=== PATIENT | male | born 1960 | race Caucasian/White ===

== ENCOUNTER 2022-04-16 19:50 | Inpatient (IN) | payer SELFPAY ==
[2022-04-16] MEDS ORDERED: DEXAMETHASONE 10 MG/ML VIAL IVP STA (20:14)
[2022-04-16] MEDS ORDERED: IPRATROPIUM/ALBUTEROL 3 ML NEB INH STA ×2 (20:14→20:30)
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
[2022-04-16 20:25] LABS: BASOPHILS % (AUTO) 0.3 %; EOSINOPHILS # (AUTO) 0.2 10^3/uL (0.0-0.7); EOSINOPHILS % (AUTO) 1.7 %; HGB - HEMOGLOBIN 16.8 g/dL (14.0-18.0); LYMPHOCYTES # (AUTO) 2.3 10^3/uL (1.5-3.5); LYMPHOCYTES % (AUTO) 21.2 %; MEAN CORPUSCULAR HEMOGLOBIN 26.5 pg (27.0-31.0); MEAN CORPUSCULAR HGB CONC 29.5 g/dL (32.0-36.0); MEAN PLATELET VOLUME 9.2 fL (7.4-11.4); MONOCYTES # (AUTO) 0.8 10^3/uL (0.0-1.0); MONOCYTES % (AUTO) 7.3 %; NEUTROPHILS # (AUTO) 7.6 10^3/uL (1.5-6.6); NEUTROPHILS % (AUTO) 69.2 %; PLT - PLATELET COUNT 333 10^3/uL (130-450); RED BLOOD COUNT 6.33 10^6/uL (4.70-6.10)
[2022-04-16 20:36] LABS: ALBUMIN/GLOBULIN RATIO 1.2 (1.0-2.2); BILIRUBIN,TOTAL 0.6 mg/dL (0.2-1.0); CREATININE 1.1 mg/dL (0.6-1.2); POTASSIUM 4.4 mmol/L (3.5-5.0); TOTAL PROTEIN 7.4 g/dL (6.7-8.2)
[2022-04-16] MEDS ORDERED: ALBUTEROL NEB 2.5 MG/3 ML INH ONE (21:02)
[2022-04-16] MEDS ORDERED: ALBUTEROL NEB 2.5 MG/3 ML INH STA (21:09)
[2022-04-16] MEDS ORDERED: AZITHROMYCIN INJ 500 MG in SODIUM CHLORIDE 0.9% 250 ML IV STA (21:21)
[2022-04-16] MEDS ORDERED: cefTRIAXone 1 GM in SODIUM CHLORIDE 0.9% MINIBAG 100 ML IV STA (21:21)
[2022-04-16] MEDS ORDERED: cefTRIAXone 1 GM VIAL ONE (21:28)
[2022-04-16 21:36] LABS: CORONAVIRUS 229E-RESP PCR NOT DETECTED
[2022-04-16 21:37] LABS: B. PARAPERTUSSIS- RESP PCR PAN NOT DETECTED; B. PERTUSSIS- RESP PCR PANEL NOT DETECTED; C. PNEUMONIAE- RESP PCR PANEL NOT DETECTED; CORONAVIRUS HKU1-RESP PCR NOT DETECTED; CORONAVIRUS NL63-RESP PCR NOT DETECTED; CORONAVIRUS OC43-RESP PCR NOT DETECTED; HUMAN METAPNEUMOVIRUS NOT DETECTED; INFLUENZA A- RESP PCR PANEL NOT DETECTED; INFLUENZA B - RESP PCR PANEL NOT DETECTED; M. PNEUMONIAE- RESP PCR PANEL NOT DETECTED; PARAINFLUENZA VIRUS 1 NOT DETECTED; PARAINFLUENZA VIRUS 2 NOT DETECTED; PARAINFLUENZA VIRUS 3 NOT DETECTED; PARAINFLUENZA VIRUS 4 NOT DETECTED; RHINOVIRUS/ENTEROVIRUS NOT DETECTED; RSV- RESP PCR PANEL NOT DETECTED; SARS-CoV-2 -RESP PCR PANEL NOT DETECTED
--- NOTE | 2022-04-16 21:38 | XRAY Report ---
PROCEDURE: Chest 1 View X-Ray INDICATIONS: dyspnea TECHNIQUE: One view of the chest was acquired. COMPARISON: None. FINDINGS: Surgical changes and devices: None. Lungs and pleura: No pleural effusions or pneumothorax. There is pulmonary edema. Mediastinum: Mediastinal contours appear normal. Heart size is normal. Bones and chest wall: No suspicious bony lesions. Overlying soft tissues appear unremarkable. IMPRESSION: 1. Pulmonary edema which may be due to cardiogenic or noncardiogenic etiologies. Reviewed by: Bubba Herron MD on 04/16/2022 9:37 PM PST Approved by: Bubba Herron MD on 04/16/2022 9:37 PM PST Station ID: [id number]
[2022-04-17] MEDS ORDERED: ALBUTEROL NEB 2.5 MG/3 ML INH STA (00:48)
[2022-04-17 02:52] LABS: VBG BASE EXCESS 2.4 mmol/L (-2 - +2); VBG HCO3 32.9 mmol/L (23-28); VBG OXYGEN SATURATION 96.5 % (60-80); VBG PCO2 75.8 mmHg (41-51); VBG PH 7.255 (7.31-7.41); VBG PO2 91.3 mmHg (25-47); VBG TOTAL CO2 35.2 mmol/L (24-29)
[2022-04-17] MEDS ORDERED: IPRATROPIUM/ALBUTEROL 3 ML NEB INH STA (11:42)
[2022-04-17 11:59] LABS: ABG BASE EXCESS 5.9 mmol/L (-2.0-3.0); ABG OXYGEN SATURATION 96 % (94-98); ABG PH 7.21 (7.35-7.45); ABG PO2 84 mmHg (80-100); ALLEN TEST POSITIVE
[2022-04-17 12:01] LABS: ABG PCO2 101 mmHg (34-45); ABG TCO2 42.1 MMOL/L (21.0-29.0)
[2022-04-17] MEDS ORDERED: NITROGLYCERIN SL 0.4 MG TABLET SL STA (13:30)
[2022-04-17] MEDS ORDERED: LOSARTAN 50 MG TABLET PO STA (13:31)
[2022-04-17] MEDS ORDERED: ACETAMINOPHEN 325 MG TABLET PO PRN (13:40)
[2022-04-17] MEDS ORDERED: ONDANSETRON 4 MG/2 ML VIAL IVP PRN (13:40)
[2022-04-17] MEDS ORDERED: IPRATROPIUM/ALBUTEROL 3 ML NEB INH PRN (13:46)
--- NOTE | 2022-04-17 14:09 | HISTORY & PHYSICAL EXAMINATION ---
Chief Complaint - Chief Complaint Chief Complaint: SOB History of Present Illness - Admitted From Admitted From:: ED - History Obtained From History obtained from: ED provider - History of Present Illness HPI Comment/Other: This is a 61-year-old white male with history of COPD diagnosed a year ago. He has had worsening shortness of breath over the last 6 months he states and has been ordered steroids and inhalers by his PCP in [place]. Otherwise, he takes no daily prescription medications. Patient presented to the ED yesterday with complaints of shortness of breath. His ABG showed that he had respiratory acidosis (ABG pH 7.3, pCO2 75). His other evaluation showed that he had elevated BNP of 400, chest x-ray showing pulmonary edema versus bilateral infiltrates. He tested Covid (-). He was put on supplemental oxygen, got treatment with iv Decadron, Duo nebs and Atrovent nebs and was started on Zithromax and Ceftriaxone. There were no hospital beds for admission. He stayed overnight in the ED. Today a new ABG was done that shows even worsening pH of 7.2 and worsening pCO2 retention, going from 75 up to 100. BiPAP has been started today. Patient is being admitted to the ICU on the Hospitalist service today. We discussed his CODE BLUE wishes and he wants to be a Full Code. History - Past Medical History Cardiovascular: reports: None Respiratory: reports: COPD Endocrine/Autoimmune: reports: None GI: reports: None : reports: None HEENT: reports: None Psych: reports: None Musculoskeletal: reports: None Derm: reports: None - Family & Social History Family History: Mother: (Both of old age(in their mid 90's)), Father: Family History Comment/Other: He has 1 brother who is healthy. No diseases run in the family. He has no natural children. Living arrangement: At home Living Situation: With spouse/s.o. 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 He quit smoking 8 years ago. He drinks rare alcohol. He denies any illicit drug use. Meds/Allgy - Home Medications Home Medications: Ambulatory Orders Medication Instructions Recorded Confirmed Ibuprofen 800 mg PO PRN PRN 04/17/22 04/17/22 - Allergies Allergies/Adverse Reactions: Allergies Allergy/AdvReac Type Severity Reaction Status Date / Time codeine Allergy Unknown Verified 04/16/22 19:58 Review of Systems - Respiratory Respiratory: reports: Cough, Sputum production, Wheezing, Snoring, Other (His respiratory symptoms definitely got worse when there was smoke in the air about a month ago, and never got better.) - All Other Systems All Other Systems: reports: Reviewed and negative Exam - Vital Signs Vital Signs: Vital Signs x48h Temp Pulse Resp BP Pulse Ox O2 Flow Rate 04/17/22 14:02 81 04/17/22 13:00 81 18 214/110 H 92 04/17/22 12:35 78 24 04/17/22 12:30 78 16 202/119 H 94 04/17/22 12:13 85 04/17/22 12:00 36.8 C 73 18 198/116 H 93 04/17/22 11:30 86 20 200/117 H 93 8 04/17/22 09:30 89 19 180/97 H 96 8 04/17/22 09:00 82 19 177/98 H 95 8 04/17/22 08:30 85 16 165/101 H 98 8 04/17/22 08:00 81 16 155/90 H 98 8 04/17/22 07:30 82 14 143/97 H 94 8 04/17/22 06:30 83 17 173/91 H 93 8 - Physical Exam General Appearance: positive: No acute distress, Alert, Other (wearing BIPAP mask, but not tight fitting because he has a large ferreira and facial hair.) Eyes Bilateral: positive: Normal inspection, EOMI ENT: positive: ENT inspection nml, No signs of dehydration Neck: positive: Nml inspection Respiratory: positive: Breath sounds nml (anteriorly, and while on BIPAP) Cardiovascular: positive: Regular rate & rhythm, Systolic murmur Abdomen: positive: Non-tender, No distention, Other (Obese with pannus) Skin: positive: Warm, Dry Extremities: positive: Non-tender, No pedal edema Neurologic/Psychiatric: positive: Oriented x3, Motor nml Conclusion/Plan - Problem List (1) Acute respiratory failure with hypoxia and hypercapnia Conclusion/Plan: This patient's ABG is consistent with him having obesity hypoventilation syndrome causing CO2 retention, narcosis and hypoxia. Continue to treat him in the ICU on BiPAP for ventilation. Will try to taper down the oxygen as tolerated, keeping saturations over 88%. Will treat his underlying COPD exacerbation. I told him that on his final hospital day he will be tested to see if he needs home oxygen, he said he would agree to use home oxygen. (2) Respiratory acidosis Conclusion/Plan: As in #1. (3) New onset of congestive heart failure Conclusion/Plan: BNP was elevated in the 400s. His chest x-ray was read as pulmonary edema. No troponins have been done yet. Will cycle troponins. Will follow BNP. We will start IV Lasix. Follow I's and O's, daily weights, electrolytes and Mg We will obtain a complete Echocardiogram. (4) COPD exacerbation Conclusion/Plan: This is likely from his prior cigarette smoking. He says he quit smoking cigarettes [address] We will place the patient on IV steroids, scheduled bronchodilators via nebulizer and inhaled steroids via nebulizer. We will continue with empiric antibiotics using Zithromax p.o. and IV ceftriaxone. Will continue with supplemental oxygen, keeping sats greater than 88%. Will try to bring down FIO2 and BIPAP support (in the ICU) when tolerated. (5) Pneumonia Conclusion/Plan: Despite the final radiology report saying pulmonary edema, the signout to me was that he has bilateral infiltrates. Will continue on empiric Zithromax and ceftriaxone, which will benefit in treating bronchitis/COPD exacerbation. Qualifiers: Pneumonia type: due to unspecified organism Laterality: bilateral Lung location: lower lobe of lung Qualified Code(s): J18.9 - Pneumonia, unspecified organism (6) Heart murmur Conclusion/Plan: A systolic murmur is audible. Longstanding valvular disease may be the cause for CHF exacerbation therefore. Will obtain a complete Echocardiogram. - Lab Results Fish Bones: 04/18/22 04:15 04/18/22 04:15
[2022-04-17] MEDS: IPRATROPIUM/ALBUTEROL 3 ML NEB INH SCH ×2 (15:08→20:59)
[2022-04-17] MEDS ORDERED: PNEUMOCOCCAL 13-VALENT CONJ 0.5 ML SYRINGE IM ONE (15:10)
--- NOTE | 2022-04-17 15:31 | PHARMACY PROGRESS NOTE ---
- Best Possible Medication History Admit Date and Time: 04/17/22 1340 Processed by: Pharmacy Medication History completed: Yes Patient Interview: Completed Secondary Source(s): Pharmacy records (pt doesn't like pain meds and not on any meds. Goes to [facility]), Insurance records As the person ultimately responsible for medication therapy, providers are able to order a medication from an existing home medication list in [facility] via the "Reconcile Routine" prior to Confirmation of that medication by support coordinator. Such practice is discouraged except when the physician, in their clinical judgment, deems that a medical need exists for a medication without regard to previous use.
[2022-04-17] MEDS: AZITHROMYCIN 250 MG TABLET PO SCH (15:46)
[2022-04-17] MEDS: cefTRIAXone 2 GM in SODIUM CHLORIDE 0.9% MINIBAG 100 ML IV SCH (15:47)
[2022-04-17 17:11] LABS: ABG BASE EXCESS 6.2 mmol/L (-2.0-3.0); ABG OXYGEN SATURATION 94 % (94-98); ABG PH 7.31 (7.35-7.45); ABG PO2 66 mmHg (80-100); ABG TCO2 38.3 MMOL/L (21.0-29.0)
[2022-04-17 17:12] LABS: ABG RESPIRATORY RATE 18 b/min; ALLEN TEST POSITIVE
[2022-04-17 17:16] LABS: ABG PCO2 74 mmHg (34-45)
[2022-04-17] MEDS: methylPREDNISolone SUCCINATE 40 MG/ML VIAL IVP SCH (19:54)
[2022-04-17] MEDS: SACCHAROMYCES BOULARDII 250 MG CAPSULE PO SCH (19:54)
[2022-04-17] MEDS: SODIUM CHLORIDE FLUSH 0.9% 10 ML SYRINGE IVP SCH (19:55)
[2022-04-17] MEDS: FAMOTIDINE 20 MG TABLET PO SCH (20:01)
[2022-04-17] MEDS: BUDESONIDE 0.5 MG/2 ML NEB INH SCH (20:59)
[2022-04-18] MEDS: methylPREDNISolone SUCCINATE 40 MG/ML VIAL IVP SCH ×5 (00:23→23:54)
[2022-04-18] MEDS: SODIUM CHLORIDE FLUSH 0.9% 10 ML SYRINGE IVP SCH ×4 (00:24→23:54)
[2022-04-18 04:28] LABS: BASOPHILS % (AUTO) 0.1 %; HCT - HEMATOCRIT 53.7 % (42.0-52.0); HGB - HEMOGLOBIN 15.8 g/dL (14.0-18.0); LYMPHOCYTES # (AUTO) 0.5 10^3/uL (1.5-3.5); LYMPHOCYTES % (AUTO) 4.8 %; MEAN CORPUSCULAR HEMOGLOBIN 26.4 pg (27.0-31.0); MEAN CORPUSCULAR HGB CONC 29.4 g/dL (32.0-36.0); MEAN CORPUSCULAR VOLUME 89.8 fL (80.0-94.0); MEAN PLATELET VOLUME 8.8 fL (7.4-11.4); MONOCYTES # (AUTO) 0.1 10^3/uL (0.0-1.0); MONOCYTES % (AUTO) 0.8 %; NEUTROPHILS # (AUTO) 9.2 10^3/uL (1.5-6.6); PLT - PLATELET COUNT 279 10^3/uL (130-450); RED BLOOD COUNT 5.98 10^6/uL (4.70-6.10); RED CELL DISTRIBUTION WIDTH 14.6 % (12.0-15.0); WHITE BLOOD COUNT 9.8 x10^3/uL (4.8-10.8)
[2022-04-18 04:41] LABS: CALCIUM 8.7 mg/dL (8.5-10.3); MAGNESIUM 2.2 mg/dL (1.7-2.8); PHOSPHORUS 3.8 mg/dL (2.5-4.6); POTASSIUM 5.5 mmol/L (3.5-5.0)
[2022-04-18] MEDS: IPRATROPIUM/ALBUTEROL 3 ML NEB INH SCH ×4 (06:19→19:23)
[2022-04-18] MEDS: BUDESONIDE 0.5 MG/2 ML NEB INH SCH ×2 (06:19→19:24)
[2022-04-18] MEDS: FUROSEMIDE 20 MG/2 ML VIAL IVP SCH ×2 (06:34→14:09)
[2022-04-18] MEDS: SODIUM CHLORIDE FLUSH 0.9% 10 ML SYRINGE IVP PRN ×4 (06:35→14:10)
[2022-04-18] MEDS: ENOXAPARIN 40 MG/0.4 ML SYRINGE SUBQ SCH (08:53)
[2022-04-18] MEDS: AZITHROMYCIN 250 MG TABLET PO SCH (08:53)
[2022-04-18] MEDS: FAMOTIDINE 20 MG TABLET PO SCH ×2 (08:53→21:06)
[2022-04-18] MEDS: SACCHAROMYCES BOULARDII 250 MG CAPSULE PO SCH ×2 (08:53→17:41)
[2022-04-18] MEDS: cefTRIAXone 2 GM in SODIUM CHLORIDE 0.9% MINIBAG 100 ML IV SCH (08:54)
[2022-04-18 11:29] LABS: ABG PH 7.34 (7.35-7.45)
[2022-04-18] MEDS ORDERED: PERFLUTREN LIPID MICROSPHERES 1.65 MG/1.5 ML VIAL IVP ONE (11:29)
[2022-04-18 11:30] LABS: ABG BASE EXCESS 9.4 mmol/L (-2.0-3.0); ABG HCO3 39.2 mmol/L (22.0-26.0); ABG OXYGEN SATURATION 91 % (94-98); ABG PO2 59 mmHg (80-100); ALLEN TEST POSITIVE
[2022-04-18 11:34] LABS: ABG PCO2 74 mmHg (34-45); ABG TCO2 41.5 MMOL/L (21.0-29.0)
--- NOTE | 2022-04-18 12:33 | XRAY Report ---
PROCEDURE: Chest 1 View X-Ray INDICATIONS: F/U Pneumonia TECHNIQUE: One view of the chest was acquired. COMPARISON: None. FINDINGS: Surgical changes and devices: None. Lungs and pleura: No pleural effusions or pneumothorax. Prominent pulmonary markings. No consolidati on is identified. The previously seen possible opacity in the right lower lobe is no longer appreciat ed. There is minimal curvilinear opacity in the left hilar region. Mediastinum: Mediastinal contours appear unchanged. Heart size is within normal limits. Bones and chest wall: No suspicious bony lesions. Overlying soft tissues appear unremarkable. IMPRESSION: No consolidation is identified. Persistent prominent pulmonary markings. This could be seen in the setting of pulmonary vascular engo rgement or pulmonary edema. Infectious/inflammatory etiology could have a similar appearance. Questio n decreased opacity at the right lower lobe. Normal curvilinear opacity in the left hilar region. Ate lectasis could have a similar appearance. Reviewed by: Salvatore Montano MD on 04/18/2022 12:31 PM PST Approved by: Salvatore Montano MD on 04/18/2022 12:31 PM PST Station ID: [id number]
[2022-04-18] MEDS: SPIRONOLACTONE 25 MG TABLET PO SCH (16:01)
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
[2022-04-18] MEDS: METOPROLOL SUCCINATE 25 MG TABLET PO SCH (21:06)
[2022-04-19 06:14] LABS: CALCIUM, IONIZED 1.06 mmol/L (1.15-1.33); VBG PH 7.45 (7.31-7.41)
[2022-04-19] MEDS: methylPREDNISolone SUCCINATE 40 MG/ML VIAL IVP SCH (06:20)
[2022-04-19] MEDS: SODIUM CHLORIDE FLUSH 0.9% 10 ML SYRINGE IVP PRN (06:20)
[2022-04-19] MEDS: FUROSEMIDE 20 MG/2 ML VIAL IVP SCH (06:20)
[2022-04-19 06:27] LABS: MAGNESIUM 2.4 mg/dL (1.7-2.8); PHOSPHORUS 3.7 mg/dL (2.5-4.6); POTASSIUM 5.3 mmol/L (3.5-5.0)
[2022-04-19] MEDS: IPRATROPIUM/ALBUTEROL 3 ML NEB INH SCH ×2 (07:03→10:30)
[2022-04-19] MEDS: BUDESONIDE 0.5 MG/2 ML NEB INH SCH (07:03)
[2022-04-19] MEDS: SACCHAROMYCES BOULARDII 250 MG CAPSULE PO SCH (08:23)
[2022-04-19] MEDS: AZITHROMYCIN 250 MG TABLET PO SCH (08:23)
[2022-04-19] MEDS: SPIRONOLACTONE 25 MG TABLET PO SCH (08:24)
[2022-04-19] MEDS: FAMOTIDINE 20 MG TABLET PO SCH (08:24)
[2022-04-19] MEDS: METOPROLOL SUCCINATE 25 MG TABLET PO SCH (08:24)
[2022-04-19] MEDS: cefTRIAXone 2 GM in SODIUM CHLORIDE 0.9% MINIBAG 100 ML IV SCH (08:24)
[2022-04-19] MEDS: SODIUM CHLORIDE FLUSH 0.9% 10 ML SYRINGE IVP SCH (08:24)
[2022-04-19] MEDS: ENOXAPARIN 40 MG/0.4 ML SYRINGE SUBQ SCH (08:25)
[2022-04-19 08:55] LABS: CALCIUM 8.7 mg/dL (8.5-10.3); CREATININE 1.3 mg/dL (0.6-1.2); POTASSIUM 5.3 mmol/L (3.5-5.0)
[2022-04-19] MEDS ORDERED: CALCIUM CARBONATE CHEW 500 MG TABLET PO SCH (09:00)
[2022-04-19] MEDS ORDERED: lisinopriL 20 MG TABLET PO SCH (09:00)
[2022-04-19 12:14] LABS: ESTIMATED AVERAGE GLUCOSE 186 mg/dL (70-100); HEMOGLOBIN A1c% 8.1 % (4.27-6.07)
--- NOTE | 2022-04-19 12:48 | Discharge Plan ---
Discharge Plan Problem Reviewed?: Yes Disposition: Home, Self Care Condition: Fair Prescriptions: Spironolactone [Aldactone] 25 mg PO DAILY #30 tab Ipratropium/Albuterol [Combivent Respimat] 4 gm IH BID #1 ea Furosemide [Lasix] 20 mg PO DAILY #30 tablet Metoprolol Succinate [Toprol Xl] 25 mg PO BID #60 tab Liraglutide [Victoza 2-Ryan] 1.8 mg SQ DAILY #3 ea lisinopriL [Zestril] 20 mg PO DAILY #30 tab Diet: Diabetic (Low salt, low starch and low sugar (Diabetic diet)) Activity Restrictions: Activity as Tolerated Shower Restrictions: No Driving Restrictions: No Instruction Topics: Diabetes Heart Disease, Heart Failure Warning Signs, Diabetes Senior Care Complications, COPD, Cardiomyopathy Dc Health Concerns: You came to the emergency room in severe shortness of breath and you were confused. We found this to be due to high carbon dioxide levels in your bloodstream and very low oxygen levels. You needed to be on a BiPAP unit, which is a portable ventilation machine, until the CO2 and O2 improved. You were in critical condition. We found the cause to be a COPD exacerbation and also from new congestive heart failure (CHF, a weak heart muscle). This is a serious diagnosis and was probably caused by untreated High Blood Pressure and untreated Diabetes. You did not even disclose that you had diabetes until immediately before being discharged. You have been started on new medications for the heart, for blood pressure, for Diabetes and for your lungs. If you do not take these medicines and do not have follow-up with a medical provider, you will be in serious and critical condition again, and may have a heart attack or stroke and not survive. You need to be referred to a decision unit rn for further management. All prescriptions were electronically sent to [facility]. You were tested to see if you need home oxygen and I am ordering a home oxygen unit for you. It should be set at 5L/min continuously. Plan of Treatment: As above. Care Goals: Improvement in symptoms and stabilization are the goals. Assessment: The patient understands and agrees to take the medications. He says that if he feels worse he promises that he will come back to the ER. Additional Instructions or Follow Up instructions: If you have new or worsening symptoms, call your Primary Care Provider for advice or come to the ER. No Smoking: If you smoke, Please STOP! Call for help. Follow-up with: PAM THORNTON MD [Primary Care Provider] -
[2022-04-19 13:16] VITALS: BP 155/88
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
== END 2022-04-19 14:50 | disposition home or self-care (01) | DRG 189 ==
LOC: ED 19:50 → ICU 04-17 13:40
PROVIDERS: ADMIT Internal Medicine; ATTEND Internal Medicine
DX: J96.02 Acute respiratory failure with hypercapnia (principal); I50.21 Acute systolic (congestive) heart failure; E87.29 Other acidosis; E66.2 Morbid (severe) obesity with alveolar hypoventilation; J44.1 Chronic obstructive pulmonary disease with (acute) exacerbation; J96.01 Acute respiratory failure with hypoxia; I11.0 Hypertensive heart disease with heart failure; J40 Bronchitis, not specified as acute or chronic; I27.81 Cor pulmonale (chronic); E11.9 Type 2 diabetes mellitus without complications; R01.1 Cardiac murmur, unspecified; T38.3X6A Underdosing of insulin and oral hypoglycemic [antidiabetic] drugs, initial encounter; Z68.37 Body mass index [BMI] 37.0-37.9, adult; Z91.128 Patient's intentional underdosing of medication regimen for other reason; Z86.16 Personal history of COVID-19; Z87.891 Personal history of nicotine dependence
CPT/HCPCS: 36415; 36600; 71045; 80048; 80053; 82330; 82803; 83036; 83605; 83690; 83735; 83880; 84100; 84132; 84484; 85025; 87150; 87633; 93306; 94640; 94660; 94664; 94761; 96365; 96368; 96375; 99284; 99285; A9270; J1650; J7626; Q9957

== ENCOUNTER 2022-07-30 18:51 | Inpatient (IN) | payer BC ==
[2022-07-30] MEDS ORDERED: IPRATROPIUM/ALBUTEROL 3 ML NEB INH STA (19:07)
[2022-07-30 19:21] LABS: BASOPHILS % (AUTO) 0.4 %; EOSINOPHILS # (AUTO) 0.2 10^3/uL (0.0-0.7); EOSINOPHILS % (AUTO) 2.5 %; HCT - HEMATOCRIT 52.4 % (42.0-52.0); HGB - HEMOGLOBIN 15.8 g/dL (14.0-18.0); LYMPHOCYTES # (AUTO) 2.4 10^3/uL (1.5-3.5); LYMPHOCYTES % (AUTO) 29.1 %; MEAN CORPUSCULAR HEMOGLOBIN 28.3 pg (27.0-31.0); MEAN CORPUSCULAR HGB CONC 30.2 g/dL (32.0-36.0); MEAN CORPUSCULAR VOLUME 93.9 fL (80.0-94.0); MEAN PLATELET VOLUME 8.6 fL (7.4-11.4); MONOCYTES # (AUTO) 0.6 10^3/uL (0.0-1.0); MONOCYTES % (AUTO) 6.8 %; NEUTROPHILS # (AUTO) 5.1 10^3/uL (1.5-6.6); PLT - PLATELET COUNT 318 10^3/uL (130-450); RED BLOOD COUNT 5.58 10^6/uL (4.70-6.10); RED CELL DISTRIBUTION WIDTH 13.3 % (12.0-15.0); WHITE BLOOD COUNT 8.3 x10^3/uL (4.8-10.8)
[2022-07-30 19:32] LABS: ALBUMIN 3.9 g/dL (3.2-5.5); ALBUMIN/GLOBULIN RATIO 1.1 (1.0-2.2); BILIRUBIN,TOTAL 0.4 mg/dL (0.2-1.0); CALCIUM 9.2 mg/dL (8.5-10.3); POTASSIUM 5.7 mmol/L (3.5-5.0); TOTAL PROTEIN 7.4 g/dL (6.7-8.2)
[2022-07-30] MEDS ORDERED: ALBUTEROL NEB 2.5 MG/3 ML INH STA ×2 (19:49→21:13)
[2022-07-30] MEDS ORDERED: methylPREDNISolone SUCCINATE 125 MG/2 ML VIAL IVP STA (19:49)
--- NOTE | 2022-07-30 19:50 | ED Physician Documentation ---
History of Present Illness - Stated complaint Stated Complaint: SOA - Chief complaint Chief Complaint: Resp - History obtained from History obtained from: Patient - History of Present Illness Timing: Today Pain level max: 0 Pain level now: 0 - Additonal information Additional information: 62-year-old male with a history of COPD presents to the emergency department complaint of increased work of breathing over the past 1 week since running out of all of his medications at home. Review of Systems Constitutional: denies: Fever, Chills GI: denies: Vomiting Skin: denies: Rash Musculoskeletal: denies: Neck pain, Back pain Neurologic: denies: Headache PD PAST MEDICAL HISTORY - Past Medical History Cardiovascular: None Respiratory: COPD Neuro: None Endocrine/Autoimmune: None GI: None : None HEENT: None Psych: None Musculoskeletal: None Derm: None - Present Medications Home Medications: Ambulatory Orders Medication Instructions Recorded Confirmed Ibuprofen 800 mg PO PRN PRN 04/17/22 04/17/22 Furosemide [Lasix] 20 mg PO DAILY #30 tablet 04/19/22 Ipratropium/Albuterol [Combivent 4 gm IH BID #1 ea 04/19/22 Respimat] Liraglutide [Victoza 2-Ryan] 1.8 mg SQ DAILY #3 ea 04/19/22 Metoprolol Succinate [Toprol Xl] 25 mg PO BID #60 tab 04/19/22 Spironolactone [Aldactone] 25 mg PO DAILY #30 tab 04/19/22 lisinopriL [Zestril] 20 mg PO DAILY #30 tab 04/19/22 - Allergies Allergies/Adverse Reactions: Allergies Allergy/AdvReac Type Severity Reaction Status Date / Time codeine Allergy Unknown Verified 04/16/22 19:58 - Social History Does the pt smoke?: No Smoking Status: Former smoker - Immunizations Immunizations are current?: Yes PD ED PE NORMAL - Vitals Vital signs reviewed: Yes - General General: Alert and oriented X 3, No acute distress - HEENT HEENT: PERRL, Moist mucous membranes - Neck Neck: Supple, no meningeal sign - Cardiac Cardiac: RRR, Strong equal pulses - Respiratory Respiratory: Other (diminished breath sounds B, wheezing B) - Abdomen Abdomen: Soft, Non tender, Non distended - Derm Derm: Warm and dry, No rash - Extremities Extremities: No edema - Neuro Neuro: Alert and oriented X 3 - Psych Psych: Normal mood, Normal affect Results - Vitals Vitals: Vital Signs - 24 hr 07/30/22 07/30/22 07/30/22 19:07 19:24 19:25 Temperature 37.1 C Heart Rate 91 95 78 Respiratory 30 H 27 H 18 Rate Blood Pressure 168/85 H 140/88 H O2 Saturation 80 L 98 If not protocol 10 : Oxygen Flow, liters/minute 07/30/22 07/30/22 07/30/22 19:29 19:47 20:04 Temperature Heart Rate 97 Respiratory 23 Rate Blood Pressure 130/81 H O2 Saturation 98 91 L 92 If not protocol 6 4 5 : Oxygen Flow, liters/minute 07/30/22 07/30/22 20:05 21:00 Temperature Heart Rate 79 Respiratory 17 Rate Blood Pressure O2 Saturation 86 L If not protocol 6 : Oxygen Flow, liters/minute Oxygen O2 Source Room air Oxygen Flow Rate 4 - Labs Labs: Laboratory Tests 07/30/22 07/30/22 07/30/22 19:16 19:16 21:34 WBC 8.3 RBC 5.58 Hgb 15.8 Hct 52.4 H MCV 93.9 MCH 28.3 MCHC 30.2 L RDW 13.3 Plt Count 318 MPV 8.6 Neut # (Auto) 5.1 Lymph # (Auto) 2.4 [place] # (Auto) 0.6 Eos # (Auto) 0.2 Baso # (Auto) 0.0 Absolute Nucleated RBC 0.00 Nucleated RBC % 0.0 Sodium 136 Potassium 5.7 H Chloride 93 L Carbon Dioxide 37 H Anion Gap 6.0 BUN 23 H Creatinine 1.0 Estimated GFR (MDRD) 75 L Glucose 139 H Calcium 9.2 Total Bilirubin 0.4 AST 21 ALT 21 Alkaline Phosphatase 66 Total Protein 7.4 Albumin 3.9 Globulin 3.5 Albumin/Globulin Ratio 1.1 Nasal Adenovirus (PCR) NOT DETECTED Nasal B. parapertussis DNA (PCR) NOT DETECTED Nasal Coronavir 229E PCR NOT DETECTED Nasal Coronavir HKU1 PCR NOT DETECTED Nasal Coronavir NL63 PCR NOT DETECTED Nasal Coronavir OC43 PCR NOT DETECTED Nasal Enterovir/Rhinovir PCR NOT DETECTED Nasal Influenza B PCR NOT DETECTED Nasal Influenza A PCR NOT DETECTED Nasal Parainfluen 1 PCR NOT DETECTED Nasal Parainfluen 2 PCR NOT DETECTED Nasal Parainfluen 3 PCR NOT DETECTED Nasal Parainfluen 4 PCR NOT DETECTED Nasal RSV (PCR) NOT DETECTED Nasal B.pertussis DNA PCR NOT DETECTED Nasal C.pneumoniae (PCR) NOT DETECTED [facility] Metapneumo PCR NOT DETECTED Nasal M.pneumoniae (PCR) NOT DETECTED Nasal SARS-CoV-2 (PCR) NOT DETECTED - Rads (name of study) cxr Radiology: Final report received, See rad report PD Medical Decision Making - ED course Complexity details: reviewed results, re-evaluated patient, considered differential, d/w patient, d/w sap basis consultant ED course: 62-year-old male with a COPD exacerbation. He has been out of all of his medications for the past 1 week. No fevers. No chills. No evidence of pneumonia on chest x-ray. Does have a mildly elevated potassium on blood draw. This should decrease with the albuterol. Patient was given Solu-Medrol and 3 nebulizer treatments. His oxygen was able to be titrated down to approximately 4 L. He still desats to approximately 85 to 86% on room air when the oxygen is turned off. Therefore we will place the patient observation for further care. Discussed the case with the hospitalist who accepts. Patient is no longer in respiratory distress. Able to speak in full sentences. This document was made in part using voice recognition software. While efforts are made to proofread this document, sound alike and grammatical errors may occur. Departure - Departure Disposition: ED Place in Observation Clinical Impression: COPD exacerbation, Hypoxia Condition: Stable Discharge Date/Time: 07/30/22 22:31
--- NOTE | 2022-07-30 21:46 | XRAY Report ---
PROCEDURE: Chest 1 View X-Ray INDICATIONS: cough TECHNIQUE: One view of the chest was acquired. COMPARISON: None. FINDINGS: Surgical changes and devices: None. Lungs and pleura: No pleural effusions or pneumothorax. Lungs are clear. Mediastinum: Mediastinal contours appear normal. Heart size is normal. Bones and chest wall: No suspicious bony lesions. Overlying soft tissues appear unremarkable. IMPRESSION: 1. No acute cardiopulmonary disease. Reviewed by: Bubba Herron MD on 07/30/2022 9:45 PM [facility] Approved by: Bubba Herron MD on 07/30/2022 9:45 PM [facility] Station ID: [id number]
[2022-07-30] MEDS ORDERED: HYDROcod/ACETAM 5/325 MG TABLET PO PRN (21:49)
[2022-07-30] MEDS ORDERED: MORPHINE 2 MG/ML CARPUJECT IVP PRN (21:49)
[2022-07-30] MEDS ORDERED: SODIUM CHLORIDE FLUSH 0.9% 10 ML SYRINGE IVP PRN (21:49)
[2022-07-30] MEDS ORDERED: ONDANSETRON 4 MG/2 ML VIAL IVP PRN (21:49)
[2022-07-30] MEDS ORDERED: ZOLPIDEM 5 MG TABLET PO PRN (21:49)
[2022-07-30] MEDS ORDERED: ACETAMINOPHEN 325 MG TABLET PO PRN (21:49)
[2022-07-30] MEDS ORDERED: MAGNESIUM SULFATE 2 GRAM 2 GM/50 ML BAG IV ONE (21:53)
[2022-07-30] MEDS ORDERED: methylPREDNISolone SUCCINATE 80 MG in SODIUM CHLORIDE 0.9% 250 ML IV SCH (22:00)
--- NOTE | 2022-07-30 22:07 | HISTORY & PHYSICAL EXAMINATION ---
Chief Complaint - Chief Complaint Chief Complaint: SOB History of Present Illness - Admitted From Admitted From:: Home - History Obtained From Records Reviewed: Yes History obtained from: Patient and ER MD Exam Limitations: Telemedicine - History of Present Illness HPI Comment/Other: 62-year-old male with a history of COPD presents to the emergency department complaint of increased work of breathing over the past 1 week since running out of all of his medications at home.Patient was here last Nov for similar complaints, does not use oxygen at home, no fevers, no chills, also has hx of cardiomyopathy, he denies active tobacco use quit 9 years ago, never had PFT and 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 He denies any other active complaints, as per Er MD was requiring 5 liters of oxygen via NC and hence unable to go home History - Past Medical History Cardiovascular: reports: None, Congestive heart failure Respiratory: reports: COPD Neuro: reports: None Endocrine/Autoimmune: reports: None GI: reports: None : reports: None HEENT: reports: None Psych: reports: None Musculoskeletal: reports: None Derm: reports: None - Family & Social History Family History: Mother: (Both of old age(in their mid 90's)), Father: Family History Comment/Other: He has 1 brother who is healthy. No diseases run in the family. He has no natural children. Living Situation: With spouse/s.o. 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 He quit smoking 8 years ago. He drinks rare alcohol. He denies any illicit drug use. Meds/Allgy - Home Medications Home Medications: Ambulatory Orders Medication Instructions Recorded Confirmed Ibuprofen 800 mg PO PRN PRN 04/17/22 04/17/22 Furosemide [Lasix] 20 mg PO DAILY #30 tablet 04/19/22 Ipratropium/Albuterol [Combivent 4 gm IH BID #1 ea 04/19/22 Respimat] Liraglutide [Victoza 2-Ryan] 1.8 mg SQ DAILY #3 ea 04/19/22 Metoprolol Succinate [Toprol Xl] 25 mg PO BID #60 tab 04/19/22 Spironolactone [Aldactone] 25 mg PO DAILY #30 tab 04/19/22 lisinopriL [Zestril] 20 mg PO DAILY #30 tab 04/19/22 - Allergies Allergies/Adverse Reactions: Allergies Allergy/AdvReac Type Severity Reaction Status Date / Time codeine Allergy Unknown Verified 04/16/22 19:58 Review of Systems - Constitutional Constitutional: reports: Fatigue - Respiratory Respiratory: reports: SOB at rest, SOB with exertion Prior Level of Functionality: Independent with ADL Exam - Vital Signs Vital Signs: Vital Signs x48h Temp Pulse Resp BP Pulse Ox O2 Flow Rate 07/30/22 21:00 86 L 07/30/22 20:05 79 17 6 07/30/22 20:04 97 23 130/81 H 92 5 07/30/22 19:47 91 L 4 07/30/22 19:29 98 6 07/30/22 19:25 78 18 10 07/30/22 19:24 95 27 H 140/88 H 98 07/30/22 19:07 37.1 C 91 30 H 168/85 H 80 L - Physical Exam General Appearance: positive: No acute distress Eyes Bilateral: positive: Normal inspection, PERRL Neck: positive: Nml inspection, Thyroid nml Respiratory: positive: Rhonchi Cardiovascular: positive: Systolic murmur Abdomen: positive: Non-tender, Nml bowel sounds Back: positive: Nml inspection Extremities: positive: Non-tender, Full ROM Neurologic/Psychiatric: positive: Oriented x3, CN's nml (2-12) Sepsis Event Note (H) - Evaluation Current Stage of Sepsis: Ruled out Conclusion/Plan - Problem List (1) CHF (congestive heart failure), NYHA class II Conclusion/Plan: Echo last visit shows moderate systolic dysfunction Would recommend out patient cardiology work up Gentle diuresis Qualifiers: Congestive heart failure type: systolic (2) COPD exacerbation Conclusion/Plan: Admit for obbservation Duonebs Steroid Outpatient PFT needs to be on long acting steroid Have not given abx as not suspicion for infection (3) Hypoxia Conclusion/Plan: Supplemental oxygen, CPAP prn (4) Diabetes Conclusion/Plan: Check A1c, life style modifcation and weight loss accuchecks Lipitor - Lab Results Fish Bones: 07/30/22 19:16 07/30/22 19:16
[2022-07-30] MEDS ORDERED: INSULIN GLARGINE-YFGN 300 UNIT/3 ML PEN SUBQ STA (22:14)
[2022-07-30 22:34] LABS: B. PARAPERTUSSIS- RESP PCR PAN NOT DETECTED; B. PERTUSSIS- RESP PCR PANEL NOT DETECTED; C. PNEUMONIAE- RESP PCR PANEL NOT DETECTED; CORONAVIRUS 229E-RESP PCR NOT DETECTED; CORONAVIRUS HKU1-RESP PCR NOT DETECTED; CORONAVIRUS NL63-RESP PCR NOT DETECTED; CORONAVIRUS OC43-RESP PCR NOT DETECTED; HUMAN METAPNEUMOVIRUS NOT DETECTED; INFLUENZA A- RESP PCR PANEL NOT DETECTED; INFLUENZA B - RESP PCR PANEL NOT DETECTED; M. PNEUMONIAE- RESP PCR PANEL NOT DETECTED; PARAINFLUENZA VIRUS 1 NOT DETECTED; PARAINFLUENZA VIRUS 2 NOT DETECTED; PARAINFLUENZA VIRUS 3 NOT DETECTED; PARAINFLUENZA VIRUS 4 NOT DETECTED; RHINOVIRUS/ENTEROVIRUS NOT DETECTED; RSV- RESP PCR PANEL NOT DETECTED; SARS-CoV-2 -RESP PCR PANEL NOT DETECTED
[2022-07-31] MEDS: SODIUM CHLORIDE FLUSH 0.9% 10 ML SYRINGE IVP SCH ×4 (01:30→21:12)
[2022-07-31] MEDS ORDERED: methylPREDNISolone SUCCINATE 125 MG/2 ML VIAL IVP SCH (04:00)
[2022-07-31] MEDS: methylPREDNISolone SUCCINATE 40 MG/ML VIAL IVP SCH ×3 (04:56→21:12)
[2022-07-31 06:22] LABS: BASOPHILS % (AUTO) 0.1 %; HCT - HEMATOCRIT 51.6 % (42.0-52.0); HGB - HEMOGLOBIN 15.9 g/dL (14.0-18.0); LYMPHOCYTES # (AUTO) 0.7 10^3/uL (1.5-3.5); LYMPHOCYTES % (AUTO) 9.8 %; MEAN CORPUSCULAR HEMOGLOBIN 28.5 pg (27.0-31.0); MEAN CORPUSCULAR HGB CONC 30.8 g/dL (32.0-36.0); MEAN CORPUSCULAR VOLUME 92.6 fL (80.0-94.0); MEAN PLATELET VOLUME 8.9 fL (7.4-11.4); MONOCYTES # (AUTO) 0.1 10^3/uL (0.0-1.0); MONOCYTES % (AUTO) 0.8 %; NEUTROPHILS # (AUTO) 6.5 10^3/uL (1.5-6.6); NEUTROPHILS % (AUTO) 88.9 %; PLT - PLATELET COUNT 331 10^3/uL (130-450); RED BLOOD COUNT 5.57 10^6/uL (4.70-6.10); RED CELL DISTRIBUTION WIDTH 13.2 % (12.0-15.0); WHITE BLOOD COUNT 7.4 x10^3/uL (4.8-10.8)
[2022-07-31] MEDS: IPRATROPIUM/ALBUTEROL 3 ML NEB INH SCH ×4 (06:31→21:20)
[2022-07-31 06:37] LABS: ALBUMIN 3.7 g/dL (3.2-5.5); BILIRUBIN,TOTAL 0.4 mg/dL (0.2-1.0); CALCIUM 9.3 mg/dL (8.5-10.3); CREATININE 0.9 mg/dL (0.6-1.2); POTASSIUM 5.2 mmol/L (3.5-5.0); TOTAL PROTEIN 7.4 g/dL (6.7-8.2)
[2022-07-31] MEDS: INSULIN LISPRO 300 UNIT/3 ML PEN SUBQ SCH ×7 (07:54→21:13)
[2022-07-31] MEDS: ATORVASTATIN 40 MG TABLET PO SCH (08:43)
[2022-07-31] MEDS: lisinopriL 20 MG TABLET PO SCH (08:43)
[2022-07-31] MEDS: SPIRONOLACTONE 25 MG TABLET PO SCH (08:43)
[2022-07-31] MEDS: FUROSEMIDE 20 MG TABLET PO SCH (08:43)
[2022-07-31 09:23] LABS: ESTIMATED AVERAGE GLUCOSE 171 mg/dL (70-100); HEMOGLOBIN A1c% 7.6 % (4.27-6.07)
--- NOTE | 2022-07-31 10:41 | PHARMACY PROGRESS NOTE ---
- Best Possible Medication History Admit Date and Time: 07/30/22 2146 Processed by: Pharmacy Medication History completed: Yes Patient Interview: Completed Secondary Source(s): Pharmacy records (pt doesn't know meds) As the person ultimately responsible for medication therapy, providers are able to order a medication from an existing home medication list in [facility] via the "Reconcile Routine" prior to Confirmation of that medication by legal support manager. Such practice is discouraged except when the physician, in their clinical judgment, deems that a medical need exists for a medication without regard to previous use.
[2022-07-31] MEDS ORDERED: INSULIN LISPRO 300 UNIT/3 ML PEN SUBQ SCH (13:51)
--- NOTE | 2022-07-31 17:10 | PROVIDER PROGRESS NOTE ---
Subjective - Prog Note Date Prog Note Date: 07/31/22 Prog Note Time: 16:58 - Subjective Pt reports feeling: Improved (Patient no longer is SOB at rest and able to speak in full sentences.) Subjective: Patient is a 62 year old male with a history COPD. Patient report improvement of symptoms since being admitted to hospital and started on methylprednisolone and ICS. Patient is no longer short of breath at rest and does not not feel fatigued. Patient denies headache, chest tightness, abdominal pain, fever, chills and nausea. Patient at 93% on nonrebreather mask 10lpm. Patient normal oxygen level is around 86% at home. Patient's lungs were clear during ausculation and patient is not in respiratory distress. Patients reports diabetes is well managed at home, however, blood sugars during admission are elevated (consistently above 300). Patient reports blood sugar levels below 120 at home. Patient started on Glargine-YFGN and Lispro during admission. Patient blood sugars are to be monitored during admission. Current Medications - Current Medications Current Medications: Active Medications Acetaminophen (Acetaminophen 325 Mg Tablet) 650 mg PO Q4HR PRN PRN Reason: Pain 1 to 4, or Fever Hydrocodone Bitart/Acetaminophen (Hydrocod/Acetam 5/325 Mg Tablet) 1 tab PO Q4HR PRN PRN Reason: Pain 5 to 7 Albuterol/Ipratropium (Ipratropium/Albuterol 3 Ml Neb) 3 ml INH Q6HR [facility] Last Admin: 07/31/22 13:22 Dose: 3 ml Atorvastatin Calcium (Atorvastatin 40 Mg Tablet) 40 mg PO DAILY [facility] Last Admin: 07/31/22 08:43 Dose: 40 mg Furosemide (Furosemide 20 Mg Tablet) 20 mg PO DAILY [facility] Last Admin: 07/31/22 08:43 Dose: 20 mg Insulin Human Lispro (Insulin Lispro 300 Unit/3 Ml Pen) 5 unit SUBQ TIDWM [facility]; Protocol Last Admin: 07/31/22 16:58 Dose: 5 unit Insulin Human Lispro (Insulin Lispro 300 Unit/3 Ml Pen) 3 - 11 unit SUBQ 0800,1200,1700,2100 [facility]; Protocol Last Admin: 07/31/22 17:00 Dose: 11 unit Lisinopril (Lisinopril 20 Mg Tablet) 20 mg PO DAILY [facility] Last Admin: 07/31/22 08:43 Dose: 20 mg Methylprednisolone (Methylprednisolone Succinate 40 Mg/Ml Vial) 80 mg IVP Q8H [facility] Last Admin: 07/31/22 13:29 Dose: 80 mg Morphine Sulfate (Morphine 2 Mg/Ml Carpuject) 2 mg IVP Q2HR PRN PRN Reason: Pain 8 to 10 Ondansetron HCl (Ondansetron 4 Mg/2 Ml Vial) 4 mg IVP Q6HR PRN PRN Reason: Nausea / Vomiting Sodium Chloride (Sodium Chloride Flush 0.9% 10 Ml Syringe) 10 ml IVP PRN PRN PRN Reason: NEEDED PER PROVIDER ORDERS Last Admin: 07/31/22 13:29 Dose: 10 ml Sodium Chloride (Sodium Chloride Flush 0.9% 10 Ml Syringe) 10 ml IVP 0100,0900,1700 [facility] Last Admin: 07/31/22 17:00 Dose: 10 ml Spironolactone (Spironolactone 25 Mg Tablet) 25 mg PO DAILY [facility] Last Admin: 07/31/22 08:43 Dose: 25 mg Zolpidem Tartrate (Zolpidem 5 Mg Tablet) 5 mg PO QPM PRN PRN Reason: Insomnia Objective - Vital Signs/Intake & Output Reviewed Vital Signs: Yes Vital Signs: Vital Signs x48h Temp Pulse Pulse Resp BP Pulse Ox O2 Flow Rate 07/31/22 16:11 90 L 10 07/31/22 15:44 36.7 C 102 H 24 137/72 H 83 L 10 07/31/22 14:17 37.1 C 94 18 130/73 90 L 10 07/31/22 13:24 86 20 10 07/31/22 10:41 37 C 99 21 124/98 H 90 L 10 Intake & Output: Intake & Output 07/28/22 07/29/22 07/30/22 07/31/22 23:59 23:59 23:59 23:59 Intake Total 240 1076 Output Total 1400 Balance 240 -324 - Objective General Appearance: positive: No acute distress, Alert Eyes Bilateral: positive: Normal inspection, PERRL ENT: positive: ENT inspection nml, Pharynx nml Neck: positive: Nml inspection, Thyroid nml, No JVD Respiratory: positive: Chest non-tender, No respiratory distress, Breath sounds nml, Other (Tachypnea noted on exam. 24 breaths per minute) Cardiovascular: positive: Regular rate & rhythm, No murmur, No gallop Abdomen: positive: Non-tender, No organomegaly Back: positive: Nml inspection Skin: positive: Color nml, No rash, Warm Extremities: positive: Non-tender Neurologic/Psychiatric: positive: Oriented x3, CN's nml (2-12), Motor nml, Sensation nml, Mood/affect nml - Lab Results Fish Bones: 07/31/22 05:28 07/31/22 05:28 Other Labs: Lab Results x24hrs 07/31/22 07/31/22 07/31/22 Range/Units 16:37 12:06 10:39 WBC (4.8-10.8) x10^3/uL RBC (4.70-6.10) 10^6/uL Hgb (14.0-18.0) g/dL Hct (42.0-52.0) % MCV (80.0-94.0) fL MCH (27.0-31.0) pg MCHC (32.0-36.0) g/dL RDW (12.0-15.0) % Plt Count (130-450) 10^3/uL MPV (7.4-11.4) fL Neut # (Auto) (1.5-6.6) 10^3/uL Lymph # (Auto) (1.5-3.5) 10^3/uL [place] # (Auto) (0.0-1.0) 10^3/uL Eos # (Auto) (0.0-0.7) 10^3/uL Baso # (Auto) (0.0-0.1) 10^3/uL Absolute Nucleated RBC x10^3/uL Nucleated RBC % /100WBC Sodium (135-145) mmol/L Potassium (3.5-5.0) mmol/L Chloride (101-111) mmol/L Carbon Dioxide (21-32) mmol/L Anion Gap (6-13) BUN (6-20) mg/dL Creatinine (0.6-1.2) mg/dL Estimated GFR (MDRD) (>89) Glucose (70-100) mg/dL POC Whole Bld Glucose 386 H 365 H 339 H (70 - 100) mg/dL Estimat Average Glucose (70-100) mg/dL Hemoglobin A1c % (4.27-6.07) % Calcium (8.5-10.3) mg/dL Total Bilirubin (0.2-1.0) mg/dL AST (10-42) IU/L ALT (10-60) IU/L Alkaline Phosphatase (42-121) IU/L B-Natriuretic Peptide (5-100) pg/mL Total Protein (6.7-8.2) g/dL Albumin (3.2-5.5) g/dL Globulin (2.1-4.2) g/dL Albumin/Globulin Ratio (1.0-2.2) Nasal Adenovirus (PCR) Nasal B. parapertussis DNA (PCR) Nasal Coronavir 229E PCR Nasal Coronavir HKU1 PCR Nasal Coronavir NL63 PCR Nasal Coronavir OC43 PCR Nasal Enterovir/Rhinovir PCR Nasal Influenza B PCR Nasal Influenza A PCR Nasal Parainfluen 1 PCR Nasal Parainfluen 2 PCR Nasal Parainfluen 3 PCR Nasal Parainfluen 4 PCR Nasal RSV (PCR) Nasal B.pertussis DNA PCR Nasal C.pneumoniae (PCR) [facility] Metapneumo PCR Nasal M.pneumoniae (PCR) Nasal SARS-CoV-2 (PCR) 07/31/22 07/31/22 07/31/22 Range/Units 07:28 05:28 05:28 WBC (4.8-10.8) x10^3/uL RBC (4.70-6.10) 10^6/uL Hgb (14.0-18.0) g/dL Hct (42.0-52.0) % MCV (80.0-94.0) fL MCH (27.0-31.0) pg MCHC (32.0-36.0) g/dL RDW (12.0-15.0) % Plt Count (130-450) 10^3/uL MPV (7.4-11.4) fL Neut # (Auto) (1.5-6.6) 10^3/uL Lymph # (Auto) (1.5-3.5) 10^3/uL [place] # (Auto) (0.0-1.0) 10^3/uL Eos # (Auto) (0.0-0.7) 10^3/uL Baso # (Auto) (0.0-0.1) 10^3/uL Absolute Nucleated RBC x10^3/uL Nucleated RBC % /100WBC Sodium 134 L (135-145) mmol/L Potassium 5.2 H (3.5-5.0) mmol/L Chloride 93 L (101-111) mmol/L Carbon Dioxide 32 (21-32) mmol/L Anion Gap 9.0 (6-13) BUN 22 H (6-20) mg/dL Creatinine 0.9 (0.6-1.2) mg/dL Estimated GFR (MDRD) 85 L (>89) Glucose 276 H (70-100) mg/dL POC Whole Bld Glucose 274 H (70 - 100) mg/dL Estimat Average Glucose 171 H (70-100) mg/dL Hemoglobin A1c % 7.6 H (4.27-6.07) % Calcium 9.3 (8.5-10.3) mg/dL Total Bilirubin 0.4 (0.2-1.0) mg/dL AST 21 (10-42) IU/L ALT 21 (10-60) IU/L Alkaline Phosphatase 74 (42-121) IU/L B-Natriuretic Peptide (5-100) pg/mL Total Protein 7.4 (6.7-8.2) g/dL Albumin 3.7 (3.2-5.5) g/dL Globulin 3.7 (2.1-4.2) g/dL Albumin/Globulin Ratio 1.0 (1.0-2.2) Nasal Adenovirus (PCR) Nasal B. parapertussis DNA (PCR) Nasal Coronavir 229E PCR Nasal Coronavir HKU1 PCR Nasal Coronavir NL63 PCR Nasal Coronavir OC43 PCR Nasal Enterovir/Rhinovir PCR Nasal Influenza B PCR Nasal Influenza A PCR Nasal Parainfluen 1 PCR Nasal Parainfluen 2 PCR Nasal Parainfluen 3 PCR Nasal Parainfluen 4 PCR Nasal RSV (PCR) Nasal B.pertussis DNA PCR Nasal C.pneumoniae (PCR) [facility] Metapneumo PCR Nasal M.pneumoniae (PCR) Nasal SARS-CoV-2 (PCR) 07/31/22 07/31/22 07/30/22 Range/Units 05:28 05:25 22:31 WBC 7.4 (4.8-10.8) x10^3/uL RBC 5.57 (4.70-6.10) 10^6/uL Hgb 15.9 (14.0-18.0) g/dL Hct 51.6 (42.0-52.0) % MCV 92.6 (80.0-94.0) fL MCH 28.5 (27.0-31.0) pg MCHC 30.8 L (32.0-36.0) g/dL RDW 13.2 (12.0-15.0) % Plt Count 331 (130-450) 10^3/uL MPV 8.9 (7.4-11.4) fL Neut # (Auto) 6.5 (1.5-6.6) 10^3/uL Lymph # (Auto) 0.7 L (1.5-3.5) 10^3/uL [place] # (Auto) 0.1 (0.0-1.0) 10^3/uL Eos # (Auto) 0.0 (0.0-0.7) 10^3/uL Baso # (Auto) 0.0 (0.0-0.1) 10^3/uL Absolute Nucleated RBC 0.00 x10^3/uL Nucleated RBC % 0.0 /100WBC Sodium (135-145) mmol/L Potassium (3.5-5.0) mmol/L Chloride (101-111) mmol/L Carbon Dioxide (21-32) mmol/L Anion Gap (6-13) BUN (6-20) mg/dL Creatinine (0.6-1.2) mg/dL Estimated GFR (MDRD) (>89) Glucose (70-100) mg/dL POC Whole Bld Glucose 190 H (70 - 100) mg/dL Estimat Average Glucose (70-100) mg/dL Hemoglobin A1c % (4.27-6.07) % Calcium (8.5-10.3) mg/dL Total Bilirubin (0.2-1.0) mg/dL AST (10-42) IU/L ALT (10-60) IU/L Alkaline Phosphatase (42-121) IU/L B-Natriuretic Peptide 26 (5-100) pg/mL Total Protein (6.7-8.2) g/dL Albumin (3.2-5.5) g/dL Globulin (2.1-4.2) g/dL Albumin/Globulin Ratio (1.0-2.2) Nasal Adenovirus (PCR) Nasal B. parapertussis DNA (PCR) Nasal Coronavir 229E PCR Nasal Coronavir HKU1 PCR Nasal Coronavir NL63 PCR Nasal Coronavir OC43 PCR Nasal Enterovir/Rhinovir PCR Nasal Influenza B PCR Nasal Influenza A PCR Nasal Parainfluen 1 PCR Nasal Parainfluen 2 PCR Nasal Parainfluen 3 PCR Nasal Parainfluen 4 PCR Nasal RSV (PCR) Nasal B.pertussis DNA PCR Nasal C.pneumoniae (PCR) [facility] Metapneumo PCR Nasal M.pneumoniae (PCR) Nasal SARS-CoV-2 (PCR) 07/30/22 07/30/22 07/30/22 Range/Units 21:34 19:16 19:16 WBC 8.3 (4.8-10.8) x10^3/uL RBC 5.58 (4.70-6.10) 10^6/uL Hgb 15.8 (14.0-18.0) g/dL Hct 52.4 H (42.0-52.0) % MCV 93.9 (80.0-94.0) fL MCH 28.3 (27.0-31.0) pg MCHC 30.2 L (32.0-36.0) g/dL RDW 13.3 (12.0-15.0) % Plt Count 318 (130-450) 10^3/uL MPV 8.6 (7.4-11.4) fL Neut # (Auto) 5.1 (1.5-6.6) 10^3/uL Lymph # (Auto) 2.4 (1.5-3.5) 10^3/uL [place] # (Auto) 0.6 (0.0-1.0) 10^3/uL Eos # (Auto) 0.2 (0.0-0.7) 10^3/uL Baso # (Auto) 0.0 (0.0-0.1) 10^3/uL Absolute Nucleated RBC 0.00 x10^3/uL Nucleated RBC % 0.0 /100WBC Sodium 136 (135-145) mmol/L Potassium 5.7 H (3.5-5.0) mmol/L Chloride 93 L (101-111) mmol/L Carbon Dioxide 37 H (21-32) mmol/L Anion Gap 6.0 (6-13) BUN 23 H (6-20) mg/dL Creatinine 1.0 (0.6-1.2) mg/dL Estimated GFR (MDRD) 75 L (>89) Glucose 139 H (70-100) mg/dL POC Whole Bld Glucose (70 - 100) mg/dL Estimat Average Glucose (70-100) mg/dL Hemoglobin A1c % (4.27-6.07) % Calcium 9.2 (8.5-10.3) mg/dL Total Bilirubin 0.4 (0.2-1.0) mg/dL AST 21 (10-42) IU/L ALT 21 (10-60) IU/L Alkaline Phosphatase 66 (42-121) IU/L B-Natriuretic Peptide (5-100) pg/mL Total Protein 7.4 (6.7-8.2) g/dL Albumin 3.9 (3.2-5.5) g/dL Globulin 3.5 (2.1-4.2) g/dL Albumin/Globulin Ratio 1.1 (1.0-2.2) Nasal Adenovirus (PCR) NOT DETECTED Nasal B. parapertussis DNA (PCR) NOT DETECTED Nasal Coronavir 229E PCR NOT DETECTED Nasal Coronavir HKU1 PCR NOT DETECTED Nasal Coronavir NL63 PCR NOT DETECTED Nasal Coronavir OC43 PCR NOT DETECTED Nasal Enterovir/Rhinovir PCR NOT DETECTED Nasal Influenza B PCR NOT DETECTED Nasal Influenza A PCR NOT DETECTED Nasal Parainfluen 1 PCR NOT DETECTED Nasal Parainfluen 2 PCR NOT DETECTED Nasal Parainfluen 3 PCR NOT DETECTED Nasal Parainfluen 4 PCR NOT DETECTED Nasal RSV (PCR) NOT DETECTED Nasal B.pertussis DNA PCR NOT DETECTED Nasal C.pneumoniae (PCR) NOT DETECTED [facility] Metapneumo PCR NOT DETECTED Nasal M.pneumoniae (PCR) NOT DETECTED Nasal SARS-CoV-2 (PCR) NOT DETECTED ABX Reporting Has patient been on IV antibiotics over the past 48 hours?: No Sepsis Event Note (H) - Evaluation Current Stage of Sepsis: Ruled out Assessment/Plan - Problem List (1) CHF (congestive heart failure), NYHA class II Impression: Patient does not appear is any acute distress and does not report any chest pain, edema, and shortness of breath during rest. Patient EF has improved significally since ECHO in April 2022, where it was 35-40%. During todays ECHO patient EF was at 55-60%. Strongly consider removing spirolactone from medication regimen. Plan Continue patient on Lasix Continue patient on spirolactone, however, strongly consider discontinuing use. Continue to monitor for exacerbation of CHF Continue to monitor patients vitals every 8 hours. Qualifiers: Congestive heart failure type: systolic Congestive heart failure chronicity: acute on chronic Qualified Code(s): I50.23 - Acute on chronic systolic (congestive) heart failure (2) COPD exacerbation Impression: Patient stable on 10LPM non-rebreather mask. Patient response to treatment is satisfactory. Plan Continue methyprednisolone medication regimen. Continue Duoneb treatment Continue to monitor patients oxygen levels every hour. Continue to monitor patients vitals every 8 hours. (3) Hypoxia Impression: Patient is stable at 93% on 10LMP non-rebreather mask. Patients baseline oxygen levels are 86% due to COPD. Patient not in acute respiratory distress. Plan Continue patient on 10LPM non-rebreather mask. Ensure patients oxygen level does not exceed 94% to avoid oxygen-induced hypercapnia. Continue to monitor patients vitals every 8 hours. (4) Diabetes Impression: Patients diabetes is well controlled during visit. Patient does not show signs of hypo or hyperglycemia including weakness and altered mental status. Plan Continue patient on Glargine-YFGN and Lispro insulin medication. Continue to monitor patients glucose levels before meals and every 4 hours. Continue to monitor patients vitals every 8 hours. 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
[2022-08-01] MEDS: methylPREDNISolone SUCCINATE 40 MG/ML VIAL IVP SCH ×2 (05:30→15:07)
[2022-08-01 05:44] LABS: CREATININE 0.9 mg/dL (0.6-1.2); POTASSIUM 4.9 mmol/L (3.5-5.0)
[2022-08-01] MEDS: IPRATROPIUM/ALBUTEROL 3 ML NEB INH SCH ×2 (08:22→13:07)
[2022-08-01] MEDS: INSULIN LISPRO 300 UNIT/3 ML PEN SUBQ SCH ×4 (08:29→12:03)
[2022-08-01] MEDS: SPIRONOLACTONE 25 MG TABLET PO SCH (08:30)
[2022-08-01] MEDS: SODIUM CHLORIDE FLUSH 0.9% 10 ML SYRINGE IVP SCH (08:30)
[2022-08-01] MEDS: lisinopriL 20 MG TABLET PO SCH (08:30)
[2022-08-01] MEDS: FUROSEMIDE 20 MG TABLET PO SCH (08:30)
[2022-08-01] MEDS: ATORVASTATIN 40 MG TABLET PO SCH (08:30)
--- NOTE | 2022-08-01 14:12 | Discharge Plan ---
Discharge Plan Problem Reviewed?: Yes Disposition: Home, Self Care Condition: Stable Prescriptions: Spironolactone [Aldactone] 25 mg PO DAILY 30 Days #30 tab Furosemide [Lasix] 20 mg PO DAILY 30 Days #30 tablet Atorvastatin [Lipitor] 40 mg PO DAILY #30 tab lisinopriL [Zestril] 20 mg PO DAILY #30 tab Diet: Diabetic Activity Restrictions: Activity as Tolerated Shower Restrictions: No Driving Restrictions: No Health Concerns: Unfortunately you are a very overweight gentleman who has a history of emphysema and a history of congestive heart failure and you stopped taking your medications a week ago because they ran out. You have not been able to establish yourself with a primary care provider because you were busy taking care of your and were not able to get refills. You ignored your own health issues and [facility] and they became a crisis resulting in your visit to the emergency room. You had become more and more short of breath and couldn't even walk across the room. You are on 5 L nasal cannula oxygen at home. In the emergency room, your oxygen levels were very low at 80% on room air. We felt that you had a combination of emphysema exacerbation and mild CHF exacerbation. We reevaluated your heart and actually found that the muscle of your heart is improved from the last time you were here to now. Before your heart was pumping at 35%. You are now pumping at 55%. That is a great improvement. Initially you were requiring 10 L of oxygen to maintain your oxygen saturations in your body. You are now back down to the 5 L nasal cannula that you usually take at home. Plan of Treatment: You now feel stable to return to home now that you have been on your medicines. You are also back down to your baseline oxygen of 5 L/min. As such we have refilled all of your medications including spironolactone, Lasix, Lipitor, metoprolol, and Zestril. We now ask you to please, please establish yourself with a primary care provider who can follow you for your medications. You have been given the name of CHELSEA Sena who is at [facility] be [facility], [employer] [facility]. Please do not ignore your own healthcare issues. If your healthcare issues result in your or worse disability, it would be very hard on your . And she is your primary concern. Please eat a low-fat diet. Please also ask your primary care provider if there is a diet regimen you can partake of to lose weight. While here, you are identified as having diabetes that is uncontrolled. There are definitely medications we can give you to help you with that but we think that your diabetes was made worse by the steroids you were given for your emphysema. You will not be sent home on steroids. Your glucose may drop with that. Please have your primary care provider recheck your glucose levels in the office. Let her know that your glycosylated hemoglobin in the hospital was 7.6%. She will recheck your glycosylated hemoglobin and assess the need for insulin therapy. No Smoking: If you smoke, Please STOP! Call for help. Follow-up with: Myesha Elizabeth PA [Provider Admit Priv/Credential] -
--- NOTE | 2022-08-01 14:43 | DISCHARGE SUMMARY ---
"Discharge Summary Admit Date: 07/30/22 Discharge Date: 08/01/22 Discharging Provider: Kacie Lance MD Primary Care Provider: CHELSEA Sena Code Status: Attempt Resuscitation Condition at Discharge: Fair Discharge Disposition: 01 Home, Self Care - DIAGNOSES Discharge Diagnoses with Status of Each Condition: 1. Acute on chronic respiratory failure with hypoxia 2. Acute on chronic heart failure 3. COPD with exacerbation 4. Noncompliance with medications 5. Type 2 diabetes mellitus, without complication, uncontrolled, with long-term use of insulin. - HPI History of Present Illness: 62-year-old male with a history of COPD presents to the emergency department complaint of increased work of breathing over the past 1 week since running out of all of his medications at home.Patient was here last Nov for similar complaints, does not use oxygen at home, no fevers, no chills, also has hx of cardiomyopathy, he denies active tobacco use quit 9 years ago, never had PFT and does not see a geophysical prospecting surveyor. 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 He denies any other active complaints, as per Er MD was requiring 5 liters of oxygen via NC and hence unable to go home - Past Medical History Cardiovascular: reports: None, Congestive heart failure Respiratory: reports: COPD Neuro: reports: None Endocrine/Autoimmune: reports: None GI: reports: None : reports: None HEENT: reports: None Psych: reports: None Musculoskeletal: reports: None Derm: reports: None - CONSULTS | PROCEDURES Procedures: Chest x-ray is without acute cardiopulmonary disease Echocardiogram was compared to echocardiogram done at previous hospitalization. His ejection fraction is currently 55 to 60% with impaired relaxation of the ventricle consistent with grade 1 diastolic dysfunction. He has mild to moderate right atrial enlargement, no significant valvular heart disease, no significant pulmonary hypertension. This is improved from his previous echocardiogram where ejection fraction was 35%. - HOSPITAL COURSE Hospital Course: He was resumed on his home meds and diuretics. He was started on insulin 5 units with meals, sliding scale with meals, and long-acting insulin was about to be started before discharge. We think that his diabetes is uncontrolled due to steroid use for emphysema. He is not going to be tapered and can stop his steroid safely. On the day of discharge the patient felt like he was back to baseline. He is on 5 L nasal cannula at home and return to 5 L without any change. He is asked us to call in prescriptions since he is run out of medication. And all of his medications for spironolactone, Combivent, Lasix, Lipitor, metoprolol XL, and Zestril were all called into [facility]. He is establish himself with a new primary care provider office and has an appointment with Myesha Elizabeth in the near future.His diabetes will need to be addressed. I was hesitant to start any new medication without ensuring that he was going to have compliance. I am also hoping that his glucose will drop once steroids stop and he may be controlled with just the use of metformin. At discharge temperature is 36.6. Heart rate 96. Blood pressure 135/73. Respirations 19. 92% saturated on 6 L. Our goal is to keep him between 88 to 92%. He is a 5 foot 11 inch tall male. Morbidly obese at 125 kg, 38.4 BMI. Nasal tone of voice, becomes tachypneic with conversation after about 3 to 4 minutes but recovers quickly. Neck is thick and unable to be assessed for JVD. Lungs have prolonged and exhalation. Almost near wheezing but that has improved since admission. No rhonchi or crackles. No egophony. No use of accessory muscles. PMI is normally placed with a regular rate and rhythm. He has a very slight right ventricular lift. Abdomen is soft, nontender. Normal bowel sounds. Extremities have trace edema. Greater than 30 minutes was spent coordinating discharge. Much of it was spent in reinstructing the patient on the importance of taking his medications. To not let them run out. His rationale for not taking care of himself is that he is putting all of his effort into taking care of his who is ill with cancer. 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 I explained that if he becomes ill or dies, his will be left without her . - ALLERGIES Allergies/Adverse Reactions: Allergies Allergy/AdvReac Type Severity Reaction Status Date / Time codeine Allergy Unknown Verified 04/16/22 19:58 - MEDICATIONS Home Medications: Ambulatory Orders Medication Instructions Recorded Confirmed Atorvastatin [Lipitor] 40 mg PO DAILY #30 tab 08/01/22 Furosemide [Lasix] 20 mg PO DAILY 30 Days #30 tablet 08/01/22 Ipratropium/Albuterol [Combivent 4 gm IH QID #1 gm 08/01/22 Respimat] Metoprolol Succinate [Toprol Xl] 25 mg PO BID #60 tab 08/01/22 07/31/22 Spironolactone [Aldactone] 25 mg PO DAILY 30 Days #30 tab 08/01/22 lisinopriL [Zestril] 20 mg PO DAILY #30 tab 08/01/22 - LABS Result Diagrams: 07/31/22 05:28 08/01/22 05:15 - SEPSIS Current Stage of Sepsis: Ruled out"
[2022-08-01 15:11] VITALS: BP 124/70
== END 2022-08-01 15:30 | disposition home or self-care (01) | DRG 189 ==
LOC: ED 18:51 → MS2 21:49 → OBSVTOIN 07-31 19:20
PROVIDERS: ADMIT Internal Medicine; ATTEND Specialist
DX: J96.21 Acute and chronic respiratory failure with hypoxia (principal); I50.23 Acute on chronic systolic (congestive) heart failure; J43.9 Emphysema, unspecified; E11.65 Type 2 diabetes mellitus with hyperglycemia; T50.916A Underdosing of multiple unspecified drugs, medicaments and biological substances, initial encounter; Z20.822 Contact with and (suspected) exposure to COVID-19; E66.01 Morbid (severe) obesity due to excess calories; Z68.38 Body mass index [BMI] 38.0-38.9, adult; Z91.128 Patient's intentional underdosing of medication regimen for other reason; Z79.4 Long term (current) use of insulin; Z87.891 Personal history of nicotine dependence; Z79.85 Long-term (current) use of injectable non-insulin antidiabetic drugs; Z99.81 Dependence on supplemental oxygen
CPT/HCPCS: 36415; 71045; 80048; 80053; 83036; 83880; 85025; 87633; 93005; 93306; 94640; 96365; 96366; 96375; 96376; 99284; 99285; A9270; G0378; J1815

== ENCOUNTER 2022-11-27 11:25 | Outpatient (CLI) | payer BC ==
[2022-11-27] MEDS ORDERED: iohexoL-300 100 ML VIAL ONE (11:37)
[2022-11-27] MEDS ORDERED: DIATRIZOATE MEGLU/DIATRIZO SOD 30 ML BOTTLE PO ONE ×2 (11:37→13:00)
[2022-11-27 11:41] LABS: BASOPHILS % (AUTO) 0.4 %; EOSINOPHILS # (AUTO) 0.3 10^3/uL (0.0-0.7); EOSINOPHILS % (AUTO) 3.1 %; HCT - HEMATOCRIT 51.5 % (42.0-52.0); HGB - HEMOGLOBIN 15.9 g/dL (14.0-18.0); LYMPHOCYTES # (AUTO) 2.8 10^3/uL (1.5-3.5); LYMPHOCYTES % (AUTO) 28.5 %; MEAN CORPUSCULAR HEMOGLOBIN 28.9 pg (27.0-31.0); MEAN CORPUSCULAR HGB CONC 30.9 g/dL (32.0-36.0); MEAN CORPUSCULAR VOLUME 93.6 fL (80.0-94.0); MEAN PLATELET VOLUME 8.8 fL (7.4-11.4); MONOCYTES # (AUTO) 0.5 10^3/uL (0.0-1.0); MONOCYTES % (AUTO) 4.6 %; NEUTROPHILS # (AUTO) 6.2 10^3/uL (1.5-6.6); NEUTROPHILS % (AUTO) 63.2 %; PLT - PLATELET COUNT 354 10^3/uL (130-450); RED CELL DISTRIBUTION WIDTH 12.8 % (12.0-15.0); WHITE BLOOD COUNT 9.7 x10^3/uL (4.8-10.8)
[2022-11-27 11:46] LABS: ESTIMATED AVERAGE GLUCOSE 148 mg/dL (70-100); HEMOGLOBIN A1c% 6.8 % (4.27-6.07)
[2022-11-27 11:59] LABS: ALBUMIN 3.9 g/dL (3.2-5.5); ALKALINE PHOSPHATASE 76 IU/L (42-121); ALT ALANINE AMINOTRANSFERASE 20 IU/L (10-60); AST ASPARTATE AMINOTRANSFERASE 21 IU/L (10-42); BILIRUBIN,TOTAL 0.6 mg/dL (0.2-1.0); BUN - BLOOD UREA NITROGEN 25 mg/dL (6-20); CARBON DIOXIDE - CO2 33 mmol/L (21-32); CHLORIDE 95 mmol/L (101-111); CHOL/HDL RATIO 6.2 (<5.0); CHOLESTEROL 314 mg/dL; CREATININE 1.2 mg/dL (0.6-1.2); GFR - MDRD 61 (>89); GLUCOSE 174 mg/dL (70-100); HDL CHOLESTEROL 51 mg/dL; LDL CHOLESTEROL,CALCULATED 207 mg/dL; LDL/HDL RATIO 4.1 (<3.6); POTASSIUM 4.7 mmol/L (3.5-5.0); SODIUM 136 mmol/L (135-145); TOTAL PROTEIN 7.9 g/dL (6.7-8.2); TRIGLYCERIDES 282 mg/dL; VLDL CHOLESTEROL 56 mg/dL
[2022-11-27 12:10] LABS: THYROID STIMULATING HORMONE 3.17 uIU/mL (0.34-5.60)
[2022-11-27] MEDS ORDERED: iohexoL-300 100 ML VIAL IVP ONE (13:00)
--- NOTE | 2022-11-27 16:50 | CT Report ---
PROCEDURE: Low Dose Lung Cancer Screen INDICATIONS: HIST OF SMOKING TECHNIQUE: A CT scan of the chest was performed. Intravenous contrast media was not administered. Images were re corded and evaluated at appropriate window settings. Reformats: axial MIP of the chest, coronal and s agittal. For radiation dose reduction, the following was used: automated exposure control, adjustment of mA and/or kV according to patient size. COMPARISON: None. FINDINGS: Image quality: Excellent. Prior cancer history: No. Lungs and pleura: No pleural effusions. No pneumothorax. No suspicious pulmonary nodules which requi re follow up. Mediastinum: Heart size is normal. No pericardial effusion. No large vessel abnormality. No mediastin al adenopathy by size criteria. One vessel coronary artery calcifications. Chest wall and lower neck: Thyroid is unremarkable. No axillary or supraclavicular adenopathy by size . Bones: No aggressive osseous abnormality. Upper Abdomen: Unremarkable. IMPRESSION: Lung RAD: 1 - Negative. Recommendation: Continue annual screening in 12 Months with LDCT Non-Lung Significant Findings: None. Reviewed by: Sriram Houston on 11/27/2022 4:49 PM PDT Approved by: Sriram Houston on 11/27/2022 4:49 PM PDT Station ID: [id number]
--- NOTE | 2022-11-27 17:29 | CT Report ---
PROCEDURE: ABDOMEN/PELVIS W INDICATIONS: VENTRAL HERNIA, ABD PAIN CONTRAST: 100ml Omni 300 TECHNIQUE: After the administration of contrast, 5 mm thick sections acquired from the diaphragms to the symphys is. 5 mm thick coronal and sagittal reformats were acquired. For radiation dose reduction, the foll owing was used: automated exposure control, adjustment of mA and/or kV according to patient size. COMPARISON: FINDINGS: Image quality: Excellent. Lung bases and heart: Unremarkable. Liver: No solid mass. Gallbladder and biliary tree: Spleen: No splenomegaly. Pancreas: No pancreatic ductal dilation. Adrenals: No adrenal nodule. The left adrenal gland is atrophic. Both adrenal glands contain ossifica tions. Kidneys and ureters: No hydronephrosis. No renal cystic lesion which requires follow up. No solid mas s. Bowel and peritoneum: No bowel distension. No pathologic free fluid. Normal appendix. Lymph nodes: No central or retroperitoneal adenopathy. Vessels: No infrarenal aortic aneurysm. PELVIS Reproductive organs: Unremarkable. Bladder: No abnormal wall thickening, accounting for underdistension. Pelvic lymph nodes: No pelvic adenopathy by size criteria. Bones: No aggressive osseous abnormality. Other: Fat-containing umbilical hernia. Fat-containing bilateral inguinal hernias. IMPRESSION: Moderate-sized, fat-containing umbilical hernias and small, fat-containing bilateral inguinal hernias . Atrophic left adrenal gland. Both adrenal glands contain calcifications. Findings likely indicate silvia or hemorrhage or infection. Reviewed by: Sriram Houston on 11/27/2022 5:27 PM PDT Approved by: Sriram Houston on 11/27/2022 5:27 PM PDT Station ID: [id number]
== END 2022-11-27 11:26 | disposition home or self-care (01) ==
LOC: LAB 11:25
PROVIDERS: ATTEND Physician Assistant
DX: R10.9 Unspecified abdominal pain (principal); E11.9 Type 2 diabetes mellitus without complications; Z12.5 Encounter for screening for malignant neoplasm of prostate; Z12.2 Encounter for screening for malignant neoplasm of respiratory organs; Z87.891 Personal history of nicotine dependence; K42.9 Umbilical hernia without obstruction or gangrene; K40.20 Bilateral inguinal hernia, without obstruction or gangrene, not specified as recurrent; E27.49 Other adrenocortical insufficiency
CPT/HCPCS: 36415; 71271; 74177; 80053; 80061; 83036; 84153; 84443; 85025; Q9963; Q9967; 83721

== ENCOUNTER 2022-12-23 21:05 | Inpatient (IN) | payer BC ==
--- NOTE | 2022-12-23 21:16 | ED Physician Documentation ---
PD HPI DYSPNEA - Stated complaint Stated Complaint: SOA - Chief complaint Chief Complaint: Resp - History obtained from History obtained from: Patient, Family - Additional information Additional information: 62yoM wtih PMH COPD Presents by private vehicle for 2 weeks of gradually worsening shortness of breath. Patient was found to be hypoxic at 75% on room air and taken quickly to ER bed for evaluation. Family states that patient was "too stubborn" to come in when symptoms started, but today he finally agreed to be brought in. Home nebulizer is not helping symptoms. Review of Systems Constitutional: denies: Fever, Chills Cardiac: denies: Chest pain / pressure, Palpitations Respiratory: reports: Dyspnea. denies: Cough, Wheezing PD PAST MEDICAL HISTORY - Past Medical History Cardiovascular: None Respiratory: COPD Neuro: None Endocrine/Autoimmune: Type 2 diabetes GI: None : None HEENT: None Psych: None Musculoskeletal: None Derm: None - Present Medications Home Medications: Ambulatory Orders Medication Instructions Recorded Confirmed Atorvastatin [Lipitor] 40 mg PO DAILY #30 tab 08/01/22 Furosemide [Lasix] 20 mg PO DAILY 30 Days #30 tablet 08/01/22 Ipratropium/Albuterol [Combivent 4 gm IH QID #1 gm 08/01/22 Respimat] Metoprolol Succinate [Toprol Xl] 25 mg PO BID #60 tab 08/01/22 07/31/22 Spironolactone [Aldactone] 25 mg PO DAILY 30 Days #30 tab 08/01/22 lisinopriL [Zestril] 20 mg PO DAILY #30 tab 08/01/22 - Allergies Allergies/Adverse Reactions: Allergies Allergy/AdvReac Type Severity Reaction Status Date / Time codeine Allergy Unknown Verified 12/23/22 21:19 - Social History Does the pt smoke?: No Smoking Status: Former smoker - Immunizations Immunizations are current?: Yes PD ED PE NORMAL - Vitals Vital signs reviewed: Yes - General General: Alert and oriented X 3, Well developed/nourished, Other (ill appearing, nontoxic) - Cardiac Cardiac: RRR, No murmur, Strong equal pulses - Respiratory Respiratory: Other (moderate respiratory distress, Extremely poor air movement) - Abdomen Abdomen: Soft, Non tender, Non distended - Derm Derm: Normal color, Warm and dry, No rash - Neuro Neuro: Alert and oriented X 3, marine photographer 2-12 intact, No motor deficit, Normal speech - Psych Psych: Normal mood, Normal affect Results - Vitals Vitals: Vital Signs - 24 hr 12/23/22 12/23/22 12/23/22 21:07 21:30 21:40 Temperature 36.2 C L Heart Rate 95 80 86 Respiratory 24 23 Rate Blood Pressure 135/71 H 121/70 O2 Saturation 80 L 98 If not protocol 15 : Oxygen Flow, liters/minute 12/23/22 12/23/22 12/23/22 22:00 22:30 23:07 Temperature Heart Rate 80 92 89 Respiratory 23 20 18 Rate Blood Pressure 184/91 H 176/86 H O2 Saturation 99 94 93 If not protocol : Oxygen Flow, liters/minute 12/23/22 23:30 Temperature Heart Rate 90 Respiratory 20 Rate Blood Pressure 172/95 H O2 Saturation 98 If not protocol : Oxygen Flow, liters/minute Oxygen O2 Source BIPAP - Labs Labs: Laboratory Tests 12/23/22 12/23/22 12/23/22 21:25 21:25 21:52 WBC 10.2 RBC 5.34 Hgb 15.4 Hct 50.0 MCV 93.6 MCH 28.8 MCHC 30.8 L RDW 12.9 Plt Count 299 MPV 8.5 Neut # (Auto) 5.7 Lymph # (Auto) 3.6 H Evans # (Auto) 0.6 Eos # (Auto) 0.2 Baso # (Auto) 0.0 Absolute Nucleated RBC 0.00 Nucleated RBC % 0.0 Sodium 138 Potassium 4.2 Chloride 97 L Carbon Dioxide 37 H Anion Gap 4.0 L BUN 20 Creatinine 1.0 Estimated GFR (MDRD) 75 L Glucose 161 H Calcium 9.3 Total Bilirubin 0.3 AST 13 ALT 12 Alkaline Phosphatase 83 Total Protein 7.0 Albumin 4.0 Globulin 3.0 Albumin/Globulin Ratio 1.3 Nasal Adenovirus (PCR) NOT DETECTED Nasal B. parapertussis DNA (PCR) NOT DETECTED Nasal Coronavir 229E PCR NOT DETECTED Nasal Coronavir HKU1 PCR NOT DETECTED Nasal Coronavir NL63 PCR NOT DETECTED Nasal Coronavir OC43 PCR NOT DETECTED Nasal Enterovir/Rhinovir PCR NOT DETECTED Nasal Influenza B PCR NOT DETECTED Nasal Influenza A PCR NOT DETECTED Nasal Parainfluen 1 PCR NOT DETECTED Nasal Parainfluen 2 PCR NOT DETECTED Nasal Parainfluen 3 PCR NOT DETECTED Nasal Parainfluen 4 PCR NOT DETECTED Nasal RSV (PCR) NOT DETECTED Nasal B.pertussis DNA PCR NOT DETECTED Nasal C.pneumoniae (PCR) NOT DETECTED [facility] Metapneumo PCR NOT DETECTED Nasal M.pneumoniae (PCR) NOT DETECTED Nasal SARS-CoV-2 (PCR) NOT DETECTED PD Medical Decision Making - ED course Complexity details: reviewed old records, reviewed results, re-evaluated patient, considered differential, d/w patient, d/w family ED course: 2 weeks of gradually worsening shortness of breath, hypoxic on room air. Patient states that this feels similar to previous COPD exacerbations. Pulmonary exam is extremely restricted. Patient placed on nonrebreather and respiratory therapy paged to place patient on BiPAP. Will give steroids, antibiotics, multiple nebulizers, and magnesium. Laboratory work is reviewed, no significant abnormality. Chest x-ray shows no acute process. Patient is improved, resting comfortably on BiPAP, saturating 92% on current BiPAP settings. We will admit patient for acute hypoxemic and hypercapnic respiratory failure on BiPAP. Departure - Departure Disposition: 66 [facility] DC/Xfer Clinical Impression: COPD exacerbation, Acute respiratory failure with hypoxia and hypercapnia Condition: Serious Forms: PCP List
[2022-12-23] MEDS ORDERED: IPRATROPIUM/ALBUTEROL 3 ML NEB INH STA ×2 (21:17→21:18)
[2022-12-23] MEDS ORDERED: methylPREDNISolone SUCCINATE 125 MG/2 ML VIAL IVP STA (21:18)
[2022-12-23] MEDS ORDERED: MAGNESIUM SULFATE 2 GRAM 2 GM/50 ML BAG IV ONE (21:18)
[2022-12-23] MEDS ORDERED: cefTRIAXone 1 GM in SODIUM CHLORIDE 0.9% MINIBAG 100 ML IV STA (21:19)
[2022-12-23] MEDS ORDERED: AZITHROMYCIN INJ 500 MG in SODIUM CHLORIDE 0.9% 250 ML IV STA (21:19)
[2022-12-23 21:30] LABS: BASOPHILS % (AUTO) 0.4 %; EOSINOPHILS # (AUTO) 0.2 10^3/uL (0.0-0.7); EOSINOPHILS % (AUTO) 2.3 %; HGB - HEMOGLOBIN 15.4 g/dL (14.0-18.0); LYMPHOCYTES # (AUTO) 3.6 10^3/uL (1.5-3.5); LYMPHOCYTES % (AUTO) 35.1 %; MEAN CORPUSCULAR HEMOGLOBIN 28.8 pg (27.0-31.0); MEAN CORPUSCULAR HGB CONC 30.8 g/dL (32.0-36.0); MEAN CORPUSCULAR VOLUME 93.6 fL (80.0-94.0); MEAN PLATELET VOLUME 8.5 fL (7.4-11.4); MONOCYTES # (AUTO) 0.6 10^3/uL (0.0-1.0); MONOCYTES % (AUTO) 6.2 %; NEUTROPHILS # (AUTO) 5.7 10^3/uL (1.5-6.6); NEUTROPHILS % (AUTO) 55.8 %; PLT - PLATELET COUNT 299 10^3/uL (130-450); RED BLOOD COUNT 5.34 10^6/uL (4.70-6.10); RED CELL DISTRIBUTION WIDTH 12.9 % (12.0-15.0); WHITE BLOOD COUNT 10.2 x10^3/uL (4.8-10.8)
[2022-12-23] MEDS ORDERED: cefTRIAXone 1 GM VIAL ONE (21:39)
[2022-12-23] MEDS ORDERED: LORazepam 2 MG/ML VIAL IVP STA (21:41)
[2022-12-23 21:43] LABS: ALBUMIN/GLOBULIN RATIO 1.3 (1.0-2.2); BILIRUBIN,TOTAL 0.3 mg/dL (0.2-1.0); CALCIUM 9.3 mg/dL (8.5-10.3); POTASSIUM 4.2 mmol/L (3.5-4.5)
[2022-12-23] MEDS ORDERED: MAGNESIUM SULFATE 2 GRAM 0 GM/0 ML BAG IV ONE (21:45)
[2022-12-23 22:50] LABS: B. PARAPERTUSSIS- RESP PCR PAN NOT DETECTED; B. PERTUSSIS- RESP PCR PANEL NOT DETECTED; C. PNEUMONIAE- RESP PCR PANEL NOT DETECTED; CORONAVIRUS 229E-RESP PCR NOT DETECTED; CORONAVIRUS HKU1-RESP PCR NOT DETECTED; CORONAVIRUS NL63-RESP PCR NOT DETECTED; CORONAVIRUS OC43-RESP PCR NOT DETECTED; HUMAN METAPNEUMOVIRUS NOT DETECTED; INFLUENZA A- RESP PCR PANEL NOT DETECTED; INFLUENZA B - RESP PCR PANEL NOT DETECTED; M. PNEUMONIAE- RESP PCR PANEL NOT DETECTED; PARAINFLUENZA VIRUS 1 NOT DETECTED; PARAINFLUENZA VIRUS 2 NOT DETECTED; PARAINFLUENZA VIRUS 3 NOT DETECTED; PARAINFLUENZA VIRUS 4 NOT DETECTED; RHINOVIRUS/ENTEROVIRUS NOT DETECTED; RSV- RESP PCR PANEL NOT DETECTED; SARS-CoV-2 -RESP PCR PANEL NOT DETECTED
--- NOTE | 2022-12-23 23:07 | XRAY Report ---
PROCEDURE: Chest 1 View X-Ray INDICATIONS: COPD WITH HYPOXIA TECHNIQUE: One view of the chest was acquired. COMPARISON: 07/30/2022. FINDINGS: Surgical changes and devices: None. Lungs and pleura: No pleural effusions or pneumothorax. Lungs are clear. Mediastinum: Mediastinal contours appear normal. Heart size is normal. Bones and chest wall: No suspicious bony lesions. Overlying soft tissues appear unremarkable. IMPRESSION: No acute cardiopulmonary disease. Reviewed by: Bubba Herron MD on 12/23/2022 11:06 PM PDT Approved by: Bubba Herron MD on 12/23/2022 11:06 PM PDT Station ID: [id number]
[2022-12-24] MEDS ORDERED: SODIUM CHLORIDE FLUSH 0.9% 10 ML SYRINGE IVP PRN (00:05)
[2022-12-24] MEDS ORDERED: ONDANSETRON 4 MG/2 ML VIAL IVP PRN (00:05)
[2022-12-24] MEDS ORDERED: ACETAMINOPHEN 325 MG TABLET PO PRN (00:05)
[2022-12-24 00:18] LABS: ABG PH 7.25 (7.35-7.45)
[2022-12-24 00:19] LABS: ABG BASE EXCESS 0.8 mmol/L (-2.0-3.0); ABG HCO3 30.7 mmol/L (22.0-26.0); ABG OXYGEN SATURATION 97 % (94-98); ABG PO2 96 mmHg (80-100); ABG TCO2 32.9 MMOL/L (21.0-29.0)
[2022-12-24 00:20] LABS: ABG PCO2 71 mmHg (34-45); ABG RESPIRATORY RATE 12 b/min; ALLEN TEST POSITIVE
--- NOTE | 2022-12-24 00:37 | HISTORY & PHYSICAL EXAMINATION ---
History and Physical - History and Physical Chief complaint Shortness of breath History of present illness This is a 62-year-old male with history of COPD and CHF was seen in the emergency room due to worsening shortness of breath. Patient does not use any oxygen at home. Oxygenation was in 70s on room air on arrival to emergency room. He was started on BiPAP after being recommended on Solu-Medrol. Patient also received IV Ativan 1 mg in the emergency room. He is somnolent while on BiPAP. No other family members present at the bedside. He has also received IV Rocephin and azithromycin. Review of systems Unable to do review of system as patient is somnolent Past medical history COPD, CHF, diabetes mellitus type 2, hypertension, dyslipidemia Social history Former smoker Family history Unable to obtain as patient is following Home medications Reviewed Allergies Reviewed Physical examination Vital signs reviewed Head is atraumatic normocephalic Pupils are reactive to light and accommodation Patient is on BiPAP Air entry is decreased bilaterally. 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 Acute respiratory failure with hypoxia and hypercapnia 2. Suspected COPD exacerbation 3. Hypertension 4. Dyslipidemia 5. History of congestive heart failure Plan Admit patient on BiPAP in ICU Repeat ABG Patient somehow received IV antibiotic admission which may be more prolonged. Closely follow his respiratory status and ABG. Consider intubation if any worsening of the ABG Continue IV Solu-Medrol Patient received IV Rocephin azithromycin in the emergency room. We will hold off on further IV antibiotic for now Check daily input and output Check daily weight Neurochecks Continue home medications once able to take oral intake, CODE STATUS Full code Total time taken for this was 70 minutes. This was telemedicine evaluation using bedside telemedicine audiovisual cart with the help of bedside nursing staff. Not able to obtain any verbal consent there is no other family members present at the baseline patient was somnolent. I am located in [facility] and patient is located in emergency room at [facility] in [facility].
[2022-12-24] MEDS ORDERED: INSULIN REGULAR HUMAN 300 UNIT/3 ML VIAL SUBQ SCH (01:00)
[2022-12-24] MEDS: SODIUM CHLORIDE FLUSH 0.9% 10 ML SYRINGE IVP SCH ×4 (01:50→23:26)
[2022-12-24 02:27] LABS: ABG PH 7.23 (7.35-7.45)
[2022-12-24 02:28] LABS: ABG BASE EXCESS 2.5 mmol/L (-2.0-3.0); ABG HCO3 33.6 mmol/L (22.0-26.0); ABG PO2 101 mmHg (80-100); ABG TCO2 36.1 MMOL/L (21.0-29.0)
[2022-12-24 02:29] LABS: ABG OXYGEN SATURATION 97 % (94-98); ABG PCO2 82 mmHg (34-45); ABG RESPIRATORY RATE 12 b/min; ALLEN TEST POSITIVE
[2022-12-24 05:28] LABS: BASOPHILS % (AUTO) 0.1 %; HCT - HEMATOCRIT 49.3 % (42.0-52.0); HGB - HEMOGLOBIN 15.4 g/dL (14.0-18.0); LYMPHOCYTES # (AUTO) 0.8 10^3/uL (1.5-3.5); LYMPHOCYTES % (AUTO) 11.2 %; MEAN CORPUSCULAR HEMOGLOBIN 29.4 pg (27.0-31.0); MEAN CORPUSCULAR HGB CONC 31.2 g/dL (32.0-36.0); MEAN CORPUSCULAR VOLUME 94.3 fL (80.0-94.0); MEAN PLATELET VOLUME 8.7 fL (7.4-11.4); MONOCYTES % (AUTO) 0.6 %; NEUTROPHILS # (AUTO) 6.2 10^3/uL (1.5-6.6); NEUTROPHILS % (AUTO) 87.7 %; PLT - PLATELET COUNT 263 10^3/uL (130-450); RED BLOOD COUNT 5.23 10^6/uL (4.70-6.10); RED CELL DISTRIBUTION WIDTH 12.9 % (12.0-15.0); WHITE BLOOD COUNT 7.1 x10^3/uL (4.8-10.8)
[2022-12-24 05:34] LABS: CALCIUM, IONIZED 1.14 mmol/L (1.15-1.33); VBG PH 7.269 (7.31-7.41)
[2022-12-24 05:46] LABS: CALCIUM 9.4 mg/dL (8.5-10.3); POTASSIUM 5.5 mmol/L (3.5-4.5)
[2022-12-24] MEDS: methylPREDNISolone SUCCINATE 40 MG/ML VIAL IVP SCH ×4 (06:05→23:26)
[2022-12-24 06:19] LABS: MAGNESIUM 2.2 mg/dL (1.7-2.3); PHOSPHORUS 4.6 mg/dL (3.7-7.2)
[2022-12-24] MEDS ORDERED: IPRATROPIUM/ALBUTEROL 3 ML NEB INH PRN (07:44)
[2022-12-24] MEDS: ENOXAPARIN 40 MG/0.4 ML SYRINGE SUBQ SCH (08:05)
[2022-12-24] MEDS: SPIRONOLACTONE 25 MG TABLET PO SCH (08:05)
[2022-12-24] MEDS: METOPROLOL SUCCINATE 25 MG TABLET PO SCH ×2 (08:05→20:49)
[2022-12-24] MEDS: lisinopriL 20 MG TABLET PO SCH (08:06)
[2022-12-24] MEDS: FUROSEMIDE 20 MG TABLET PO SCH (08:06)
[2022-12-24] MEDS: INSULIN LISPRO 300 UNIT/3 ML PEN SUBQ SCH ×4 (08:08→21:28)
[2022-12-24 09:15] LABS: ABG BASE EXCESS 1.2 mmol/L (-2.0-3.0); ABG HCO3 31.9 mmol/L (22.0-26.0); ABG OXYGEN SATURATION 93 % (94-98); ABG PH 7.22 (7.35-7.45); ABG PO2 70 mmHg (80-100); ABG TCO2 34.3 MMOL/L (21.0-29.0); ALLEN TEST POSITIVE
[2022-12-24 09:17] LABS: ABG PCO2 79 mmHg (34-45)
[2022-12-24] MEDS: BUDESONIDE 0.5 MG/2 ML NEB INH SCH ×2 (10:40→19:20)
[2022-12-24] MEDS: IPRATROPIUM/ALBUTEROL 3 ML NEB INH SCH ×3 (10:40→19:19)
[2022-12-24 11:19] LABS: ESTIMATED AVERAGE GLUCOSE 163 mg/dL (70-100); HEMOGLOBIN A1c% 7.3 % (4.27-6.07)
[2022-12-24 12:10] LABS: ABG PH 7.29 (7.35-7.45); ABG PO2 67 mmHg (80-100)
[2022-12-24 12:11] LABS: ABG HCO3 31.1 mmol/L (22.0-26.0); ABG OXYGEN SATURATION 93 % (94-98); ABG TCO2 33.1 MMOL/L (21.0-29.0); ALLEN TEST POSITIVE
[2022-12-24 12:12] LABS: ABG PCO2 67 mmHg (34-45)
--- NOTE | 2022-12-24 17:35 | PROVIDER PROGRESS NOTE ---
Hospitalist Cross-cover Note - Cross-Cover Note Cross-Cover Note: The patient was admitted just after midnight last night. He is in the ICU on BiPAP. He wanted breaks from BiPAP and RT took him off and put him on an Oxymizer. ABGs were done then which showed that he is a CO2 retainer and got acidotic then. He was put back on BiPAP. I meyt and saw the patient in the ICU and he had no complaints. His lung exam shows diffusely poor air movement but no rales or wheezing. He is on BiPAP currently. A/P: For his Acute resp failure with hypoxia and hypercapnia, will continue with nebulized bronchodilator treatments, supplemental O2, BiPAP in the ICU, empiric antibiotics, IV steroids and nebulized steroid. For his DM, I spoke to our truck technician who recommends that he go on long-acting insulin twice daily which I will order. Continue with fingerstick checks, sliding scale insulin and hypoglycemia porotocol.
[2022-12-24] MEDS: ATORVASTATIN 40 MG TABLET PO SCH (20:48)
[2022-12-24] MEDS: INSULIN GLARGINE-YFGN 300 UNIT/3 ML PEN SUBQ SCH (20:49)
[2022-12-24] MEDS ORDERED: INSULIN GLARGINE-YFGN 300 UNIT/3 ML PEN SUBQ SCH (21:00)
[2022-12-24] MEDS ORDERED: LORazepam 0.5 MG TABLET PO SCH (23:45)
[2022-12-25 05:16] LABS: BASOPHILS % (AUTO) 0.1 %; HCT - HEMATOCRIT 47.7 % (42.0-52.0); HGB - HEMOGLOBIN 15.1 g/dL (14.0-18.0); LYMPHOCYTES # (AUTO) 1.4 10^3/uL (1.5-3.5); LYMPHOCYTES % (AUTO) 8.1 %; MEAN CORPUSCULAR HEMOGLOBIN 29.4 pg (27.0-31.0); MEAN CORPUSCULAR HGB CONC 31.7 g/dL (32.0-36.0); MEAN CORPUSCULAR VOLUME 92.8 fL (80.0-94.0); MONOCYTES # (AUTO) 0.5 10^3/uL (0.0-1.0); MONOCYTES % (AUTO) 2.7 %; NEUTROPHILS # (AUTO) 15.2 10^3/uL (1.5-6.6); NEUTROPHILS % (AUTO) 88.7 %; PLT - PLATELET COUNT 330 10^3/uL (130-450); RED BLOOD COUNT 5.14 10^6/uL (4.70-6.10); RED CELL DISTRIBUTION WIDTH 12.7 % (12.0-15.0); WHITE BLOOD COUNT 17.2 x10^3/uL (4.8-10.8)
[2022-12-25 05:29] LABS: CALCIUM, IONIZED 1.14 mmol/L (1.15-1.33); VBG PH 7.316 (7.31-7.41)
[2022-12-25 05:33] LABS: CALCIUM 9.1 mg/dL (8.5-10.3); CREATININE 1.3 mg/dL (0.6-1.3); PHOSPHORUS 3.1 mg/dL (3.7-7.2); POTASSIUM 5.3 mmol/L (3.5-4.5)
[2022-12-25] MEDS: IPRATROPIUM/ALBUTEROL 3 ML NEB INH SCH ×4 (05:45→19:41)
[2022-12-25] MEDS: BUDESONIDE 0.5 MG/2 ML NEB INH SCH ×2 (05:45→19:40)
[2022-12-25 06:13] LABS: ABG BASE EXCESS 2.7 mmol/L (-2.0-3.0); ABG HCO3 31.6 mmol/L (22.0-26.0); ABG OXYGEN SATURATION 92 % (94-98); ABG PH 7.29 (7.35-7.45); ABG PO2 64 mmHg (80-100); ABG TCO2 33.6 MMOL/L (21.0-29.0); ALLEN TEST POSITIVE
[2022-12-25 06:14] LABS: ABG RESPIRATORY RATE 14 b/min
[2022-12-25 06:16] LABS: ABG PCO2 67 mmHg (34-45)
[2022-12-25] MEDS: methylPREDNISolone SUCCINATE 40 MG/ML VIAL IVP SCH ×4 (06:29→23:43)
[2022-12-25] MEDS ORDERED: ALPRAZolam 0.25 MG TABLET PO PRN (08:12)
[2022-12-25] MEDS: ENOXAPARIN 40 MG/0.4 ML SYRINGE SUBQ SCH (08:36)
[2022-12-25] MEDS: SPIRONOLACTONE 25 MG TABLET PO SCH (08:36)
[2022-12-25] MEDS: lisinopriL 20 MG TABLET PO SCH (08:36)
[2022-12-25] MEDS: FUROSEMIDE 20 MG TABLET PO SCH (08:36)
[2022-12-25] MEDS: METOPROLOL SUCCINATE 25 MG TABLET PO SCH ×2 (08:36→21:15)
[2022-12-25] MEDS: INSULIN LISPRO 300 UNIT/3 ML PEN SUBQ SCH ×7 (08:36→21:14)
[2022-12-25] MEDS: INSULIN GLARGINE-YFGN 300 UNIT/3 ML PEN SUBQ SCH ×2 (08:37→21:13)
[2022-12-25] MEDS: SODIUM CHLORIDE FLUSH 0.9% 10 ML SYRINGE IVP SCH ×3 (09:07→23:43)
[2022-12-25] MEDS: cefTRIAXone 2 GM in SODIUM CHLORIDE 0.9% MINIBAG 100 ML IV SCH (09:48)
[2022-12-25] MEDS: guaiFENesin 600 MG TABLET PO SCH ×2 (10:24→21:14)
[2022-12-25] MEDS: AZITHROMYCIN INJ 500 MG in SODIUM CHLORIDE 0.9% 250 ML IV SCH (10:24)
--- NOTE | 2022-12-25 14:24 | PHARMACY PROGRESS NOTE ---
- Best Possible Medication History Admit Date and Time: 12/24/22 0006 Processed by: Pharmacy Medication History completed: Yes Patient Interview: Completed Secondary Source(s): Spouse/Significant other, Pharmacy records As the person ultimately responsible for medication therapy, providers are able to order a medication from an existing home medication list in [facility] via the "Reconcile Routine" prior to Confirmation of that medication by product support representative. Such practice is discouraged except when the physician, in their clinical judgment, deems that a medical need exists for a medication without regard to previous use.
--- NOTE | 2022-12-25 14:32 | PROVIDER PROGRESS NOTE ---
Subjective - Subjective Pt reports feeling: Improved (He is more awake and alert for longer periods of time, but is napping when he is not spoken to.) Objective - Vital Signs/Intake & Output Reviewed Vital Signs: Yes Vital Signs: Vital Signs Temp Pulse Pulse Resp BP Pulse Ox O2 Flow Rate 12/25/22 14:00 71 13 124/75 91 L 7 12/25/22 13:00 70 14 120/77 96 9 12/25/22 12:00 36.9 C 80 18 129/56 L 90 L 9 12/25/22 11:01 84 23 12/25/22 11:00 85 24 114/72 92 8 12/25/22 10:38 14 93 7 Intake & Output: Intake & Output 12/22/22 12/23/22 12/24/22 12/25/22 23:59 23:59 23:59 23:59 Intake Total 150 1210 1200 Output Total 1621 2135 Balance 225 -685 -674 - Objective General Appearance: positive: No acute distress (Wearing O2 via BiPAP or via Oxymizer), Other (Obese male) Eyes Bilateral: positive: Normal inspection ENT: positive: No signs of dehydration Neck: positive: Other (Obese neck, cannot evaluate JVP) Respiratory: positive: Other (Poor air movement in all lung jackson, no wheezing or rales) Cardiovascular: positive: Regular rate & rhythm (Distant heart sounds due to morbid obesity and COPD, no audible murmur) Abdomen: positive: Non-tender, Other (Obese with a pannus) Skin: positive: Warm, Dry Extremities: positive: Non-tender, Other (1+ pretibial edema) Neurologic/Psychiatric: positive: Oriented x3, Motor nml, Other (Lethargic) - Lab Results Fish Bones: 12/25/22 04:27 12/25/22 04:27 Other Labs: Lab Results x24hrs 12/25/22 12/25/22 12/25/22 Range/Units 11:35 07:42 05:40 WBC (4.8-10.8) x10^3/uL RBC (4.70-6.10) 10^6/uL Hgb (14.0-18.0) g/dL Hct (42.0-52.0) % MCV (80.0-94.0) fL MCH (27.0-31.0) pg MCHC (32.0-36.0) g/dL RDW (12.0-15.0) % Plt Count (130-450) 10^3/uL MPV (7.4-11.4) fL Neut # (Auto) (1.5-6.6) 10^3/uL Lymph # (Auto) (1.5-3.5) 10^3/uL [place] # (Auto) (0.0-1.0) 10^3/uL Eos # (Auto) (0.0-0.7) 10^3/uL Baso # (Auto) (0.0-0.1) 10^3/uL Absolute Nucleated RBC x10^3/uL Nucleated RBC % /100WBC Bld Gas Analysis Time 0551 Sample Site LEFT RADIAL ABG pH 7.29 L (7.35-7.45) ABG pCO2 67 H* (34-45) mmHg ABG pO2 64 L (80-100) mmHg ABG HCO3 31.6 H (22.0-26.0) mmol/L ABG Total CO2 33.6 H (21.0-29.0) MMOL/L ABG O2 Saturation 92 L (94-98) % ABG Base Excess 2.7 (-2.0-3.0) mmol/L Robert Test POSITIVE VBG pH (7.31-7.41) Ionized Calcium (1.15-1.33) mmol/L Respiration Rate 14 b/min O2 Delivery Device BiPAP FiO2 40.00 EPAP 5 cmH2O IPAP 16 cmH2O Sodium (135-145) mmol/L Potassium (3.5-4.5) mmol/L Chloride (101-111) mmol/L Carbon Dioxide (21-32) mmol/L Anion Gap (6-13) BUN (6-20) mg/dL Creatinine (0.6-1.3) mg/dL Estimated GFR (MDRD) (>89) Glucose (74-104) mg/dL POC Whole Bld Glucose 265 H 232 H (70 - 100) mg/dL Calcium (8.5-10.3) mg/dL Phosphorus (3.7-7.2) mg/dL Magnesium (1.7-2.3) mg/dL 12/25/22 12/25/22 12/25/22 Range/Units 04:27 04:27 04:27 WBC 17.2 H (4.8-10.8) x10^3/uL RBC 5.14 (4.70-6.10) 10^6/uL Hgb 15.1 (14.0-18.0) g/dL Hct 47.7 (42.0-52.0) % MCV 92.8 (80.0-94.0) fL MCH 29.4 (27.0-31.0) pg MCHC 31.7 L (32.0-36.0) g/dL RDW 12.7 (12.0-15.0) % Plt Count 330 (130-450) 10^3/uL MPV 9.0 (7.4-11.4) fL Neut # (Auto) 15.2 H (1.5-6.6) 10^3/uL Lymph # (Auto) 1.4 L (1.5-3.5) 10^3/uL [place] # (Auto) 0.5 (0.0-1.0) 10^3/uL Eos # (Auto) 0.0 (0.0-0.7) 10^3/uL Baso # (Auto) 0.0 (0.0-0.1) 10^3/uL Absolute Nucleated RBC 0.00 x10^3/uL Nucleated RBC % 0.0 /100WBC Bld Gas Analysis Time Sample Site ABG pH (7.35-7.45) ABG pCO2 (34-45) mmHg ABG pO2 (80-100) mmHg ABG HCO3 (22.0-26.0) mmol/L ABG Total CO2 (21.0-29.0) MMOL/L ABG O2 Saturation (94-98) % ABG Base Excess (-2.0-3.0) mmol/L Robert Test VBG pH 7.316 (7.31-7.41) Ionized Calcium 1.14 L (1.15-1.33) mmol/L Respiration Rate b/min O2 Delivery Device FiO2 EPAP cmH2O IPAP cmH2O Sodium 134 L (135-145) mmol/L Potassium 5.3 H (3.5-4.5) mmol/L Chloride 96 L (101-111) mmol/L Carbon Dioxide 34 H (21-32) mmol/L Anion Gap 4.0 L (6-13) BUN 40 H (6-20) mg/dL Creatinine 1.3 (0.6-1.3) mg/dL Estimated GFR (MDRD) 56 L (>89) Glucose 267 H (74-104) mg/dL POC Whole Bld Glucose (70 - 100) mg/dL Calcium 9.1 (8.5-10.3) mg/dL Phosphorus 3.1 L (3.7-7.2) mg/dL Magnesium 2.0 (1.7-2.3) mg/dL 12/24/22 12/24/22 Range/Units 20:44 16:53 WBC (4.8-10.8) x10^3/uL RBC (4.70-6.10) 10^6/uL Hgb (14.0-18.0) g/dL Hct (42.0-52.0) % MCV (80.0-94.0) fL MCH (27.0-31.0) pg MCHC (32.0-36.0) g/dL RDW (12.0-15.0) % Plt Count (130-450) 10^3/uL MPV (7.4-11.4) fL Neut # (Auto) (1.5-6.6) 10^3/uL Lymph # (Auto) (1.5-3.5) 10^3/uL [place] # (Auto) (0.0-1.0) 10^3/uL Eos # (Auto) (0.0-0.7) 10^3/uL Baso # (Auto) (0.0-0.1) 10^3/uL Absolute Nucleated RBC x10^3/uL Nucleated RBC % /100WBC Bld Gas Analysis Time Sample Site ABG pH (7.35-7.45) ABG pCO2 (34-45) mmHg ABG pO2 (80-100) mmHg ABG HCO3 (22.0-26.0) mmol/L ABG Total CO2 (21.0-29.0) MMOL/L ABG O2 Saturation (94-98) % ABG Base Excess (-2.0-3.0) mmol/L Robert Test VBG pH (7.31-7.41) Ionized Calcium (1.15-1.33) mmol/L Respiration Rate b/min O2 Delivery Device FiO2 EPAP cmH2O IPAP cmH2O Sodium (135-145) mmol/L Potassium (3.5-4.5) mmol/L Chloride (101-111) mmol/L Carbon Dioxide (21-32) mmol/L Anion Gap (6-13) BUN (6-20) mg/dL Creatinine (0.6-1.3) mg/dL Estimated GFR (MDRD) (>89) Glucose (74-104) mg/dL POC Whole Bld Glucose 484 H 373 H (70 - 100) mg/dL Calcium (8.5-10.3) mg/dL Phosphorus (3.7-7.2) mg/dL Magnesium (1.7-2.3) mg/dL Assessment/Plan - Problem List (1) Acute respiratory failure with hypoxia and hypercapnia Impression: The patient presented hypopneic with respiratory acidosis and marked CO2 retention. He was put on BiPAP which was uncomfortable for him but then he did wear it all of last night (however he told me it kept him awake because of the loud sound). He had a morning ABG that showed continued respiratory acidosis pH 7.29 with CO2 of 67 (retention) despite being on BIPAP last nite. His BMP shows chronic elevation of CO2 indicating that this is chronic and he is compensating We are trying him on Oxymizer during the day, And on 30% FiO2 he is reaching sa turations of only 89%. I plan to have him on the BiPAP machine at least when he is asleep. I had a long discussion with him and at bedside about the reason for needing the ventilation, to drop his CO2. Plan: Continue with supplemental O2, target O2 saturations 88% or above. If he is claustrophobic on the BiPAP, I have ordered Xanax as needed to use. Patient requires nocturnal and daytime ventilation. A home BiPAP would be insufficient due to severity of his condition. His chronic respiratory failure, and obesity hypoventilation is the primary cause of his hypercapnia. I am ordering a non-invasive home ventilator to treat his condition and decrease mortality and hospital readmissions. 2. COPD exacerbation He has slightly better air movement today, but still tight, however no wheezing Plan: Continue with IV steroids Continue empiric Zithromax and ceftriaxone Continue with nebulized bronchodilators and nebulized steroids Will order Mucinex for pulmonary toilet We will start him on nightly Montelukast Continue with supplemental O2, target O2 saturations 88% or above. 3. DM Type 2 He is running glucoses in the 200s to 400s, they have been higher ever since on iv steroids I started him on a diabetic diet His A1c came back at 7.3. He was on no diabetic medications at home Plan: I spoke to our occupational therapist assistant who recommends that he go on long-acting insulin twice daily and mealtime Insulin 6U, which I will order. Since he was not on any treatment at all for DM, I am not sure he will be compliant with using insulin [facility]. Continue with fingerstick checks, sliding scale insulin and hypoglycemia protocol. 4. Morbid obesity BMI 40-45 This complicates a lot of his care. I suspect he has obesity hypoventilation syndrome. He has never had a sleep study however Plan: I reviewed with him, and with at bedside, that weight loss will help a lot of his respiratory failure and also his DM. 5. History of cardiomyopathy I reviewed his EMR today. He used to have an EF of 35% about 1-2 years ago (unknown cause). When he was here approximately 8 months ago, the Echo EF then showed 55%. At this admission, his BNP was WNL All labs were reviewed. Today he has a prerenal azotemia and this is just continuing his home dose of Lasix 20 daily Plan: We will continue him on his usual cardiac medications which are keeping him stable. I did order an Echo to be done this hospitalization to recheck his EF in case there is a drop in EF, adding to his condition 6. Hypertension Plan: We will continue with his usual medications for this
[2022-12-25] MEDS ORDERED: INSULIN LISPRO 300 UNIT/3 ML PEN SUBQ STA ×2 (20:51→21:06)
[2022-12-25] MEDS ORDERED: MONTELUKAST 10 MG TABLET PO SCH (21:00)
[2022-12-25] MEDS: ATORVASTATIN 40 MG TABLET PO SCH (21:15)
[2022-12-26 05:05] LABS: CALCIUM 8.8 mg/dL (8.5-10.3); CREATININE 1.1 mg/dL (0.6-1.3)
[2022-12-26 05:56] LABS: MAGNESIUM 2.2 mg/dL (1.7-2.3); PHOSPHORUS 3.3 mg/dL (3.7-7.2)
[2022-12-26] MEDS: methylPREDNISolone SUCCINATE 40 MG/ML VIAL IVP SCH ×2 (06:01→11:57)
[2022-12-26] MEDS: IPRATROPIUM/ALBUTEROL 3 ML NEB INH SCH ×3 (07:31→16:43)
[2022-12-26] MEDS: BUDESONIDE 0.5 MG/2 ML NEB INH SCH (07:31)
[2022-12-26] MEDS: cefTRIAXone 2 GM in SODIUM CHLORIDE 0.9% MINIBAG 100 ML IV SCH (08:05)
[2022-12-26] MEDS: ENOXAPARIN 40 MG/0.4 ML SYRINGE SUBQ SCH (08:06)
[2022-12-26] MEDS: AZITHROMYCIN INJ 500 MG in SODIUM CHLORIDE 0.9% 250 ML IV SCH (08:06)
[2022-12-26] MEDS: INSULIN LISPRO 300 UNIT/3 ML PEN SUBQ SCH ×6 (08:06→17:24)
[2022-12-26] MEDS: INSULIN GLARGINE-YFGN 300 UNIT/3 ML PEN SUBQ SCH (08:06)
[2022-12-26] MEDS: SPIRONOLACTONE 25 MG TABLET PO SCH (08:07)
[2022-12-26] MEDS: guaiFENesin 600 MG TABLET PO SCH (08:07)
[2022-12-26] MEDS: FUROSEMIDE 20 MG TABLET PO SCH (08:08)
[2022-12-26] MEDS: lisinopriL 20 MG TABLET PO SCH (08:08)
[2022-12-26] MEDS: SODIUM CHLORIDE FLUSH 0.9% 10 ML SYRINGE IVP SCH (08:08)
[2022-12-26] MEDS: METOPROLOL SUCCINATE 25 MG TABLET PO SCH (08:17)
[2022-12-26 15:23] VITALS: BP 131/77
--- NOTE | 2022-12-26 15:56 | Discharge Plan ---
Discharge Plan Problem Reviewed?: Yes Disposition: Home, Self Care Condition: Serious Prescriptions: Mometasone Furoate [Asmanex] 110 mcg IH BID #1 each Azithromycin 250 mg PO DAILY 3 Days #3 tablet predniSONE [Deltasone] 2 tablet PO 0800 3 Days #6 tablet Ipratropium/Albuterol [Duoneb] 3 ml INH RTQID #12 ml Budesonide [Pulmicort] 0.5 mg INH RTBID #1 ml Cefpodoxime Proxetil [Vantin] 200 mg PO Q12H 3 Days #12 tablet Diet: Cardiac Activity Restrictions: Activity as Tolerated No Smoking: If you smoke, Please STOP! Call for help.
--- NOTE | 2022-12-26 18:53 | DISCHARGE SUMMARY ---
Discharge Summary Admit Date: 12/24/22 Discharge Date: 12/26/22 Discharging Provider: Dr Randy Rosas Code Status: Attempt Resuscitation Condition at Discharge: Serious Discharge Disposition: 01 Home, Self Care - DIAGNOSES Admission Diagnoses: 1. Acute respiratory failure with hypoxia and hypercapnia 2. Suspected COPD exacerbation 3. Hypertension 4. Dyslipidemia 5. History of congestive heart failure Discharge Diagnoses with Status of Each Condition: Acute respiratory failure with hypoxia - improved COPD Exacerbation - improved DM Type 2 - stable Morbid Obesity - Stable HTN - Stable - HPI History of Present Illness: This is a 62-year-old male with history of COPD and CHF was seen in the emergency room due to worsening shortness of breath. Patient does not use any oxygen at home. Oxygenation was in 70s on room air on arrival to emergency room. He was started on BiPAP after being recommended on Solu-Medrol. Patient also received IV Ativan 1 mg in the emergency room. He is somnolent while on BiPAP. No other family members present at the bedside. He has also received IV Rocephin and azithromycin. - HOSPITAL COURSE Hospital Course: (1) Acute respiratory failure with hypoxia and hypercapnia Impression: The patient presented hypopneic with respiratory acidosis and marked CO2 retention. He was put on BiPAP which was uncomfortable for him but then he did wear it all of night of 12/24. He had a morning ABG that showed continued respiratory acidosis pH 7.29 with CO2 of 67 (retention) despite being on BIPAP overnight. With Oxymizer during the day, on 30% FiO2, he is reaching saturations of only 89%. I plan to have him on the BiPAP machine at least when he is asleep. I had a long discussion with him and at bedside about the reason for needing the ventilation, to drop his CO2. Plan: Continue with supplemental O2, target O2 saturations 88% or above. If he is claustrophobic on the BiPAP, I have ordered Xanax as needed to use. Patient requires nocturnal and daytime ventilation. A home BiPAP would be insufficient due to severity of his condition. His chronic respiratory failure, and obesity hypoventilation is the primary cause of his hypercapnia. I am ordering a non-invasive home ventilator to treat his condition and decrease mortality and hospital readmissions. 2. COPD exacerbation Had progressively better lung sounds. Treated with IV steroids, empiric Zithromax and ceftriaxone, nebulized bronchodilators and nebulized steroids. Mucinex for pulmonary toilet 3. DM Type 2 He is running glucoses in the 200s to 400s, they have been higher ever since on iv steroids I started him on a diabetic diet His A1c came back at 7.3. He was on no diabetic medications at home Consider starting pt on Metformin at home. 4. Morbid obesity BMI 40-45 This complicates a lot of his care. I suspect he has obesity hypoventilation syndrome. He has never had a sleep study however Plan: I reviewed with him, and with at bedside, that weight loss will help a lot of his respiratory failure and also his DM. 5. History of cardiomyopathy He used to have an EF of 35% about 1-2 years ago (unknown cause). When he was here approximately 8 months ago, the Echo EF then showed 55%. At this admission, his BNP was WNL All labs were reviewed. Today he has a prerenal azotemia and this is just con tinuing his home dose of Lasix 20 daily Plan: We will continue him on his usual cardiac medications which are keeping him stable. I did order an Echo to be done this hospitalization to recheck his EF in case there is a drop in EF, adding to his condition. It was largely unchanged. 6. Hypertension Plan: We will continue with his usual medications for this This patient's COPD is the primary cause of his chronic respiratory failure, complicated by obesity hypoventilation. BiPAP is insufficient due to the severity of the disease therefore ordering noninvasive ventilator to treat condition and decrease mortality and hospital readmissions. He will use mouthpiece should he become claustrophobic during the daytime and use AVAPS AE for nocturnal use. Patient was hypoxic at rest. He had room air sats of 87%. At rest with oxygen on 2 L/min his sats were 88%, and on 4 L/min the improved to 96%. His O2 sats on 4 L/min with exertion was 90%. I am ordering home oxygen 4 L/min at rest and exertion to treat his COPD and hypoxemia. - ALLERGIES Allergies/Adverse Reactions: Allergies Allergy/AdvReac Type Severity Reaction Status Date / Time codeine Allergy Unknown Verified 12/23/22 21:19 - MEDICATIONS Home Medications: Ambulatory Orders Medication Instructions Recorded Confirmed Furosemide [Lasix] 20 mg PO DAILY 30 Days #30 tablet 08/01/22 12/24/22 Spironolactone [Aldactone] 25 mg PO DAILY 30 Days #30 tab 08/01/22 12/24/22 lisinopriL [Zestril] 20 mg PO DAILY #30 tab 08/01/22 12/24/22 Albuterol Sulfate [Proventil Hfa] 2 puffs PO Q4H PRN 12/25/22 12/25/22 Metoprolol Succinate [Toprol Xl] 1 tab PO DAILY 12/25/22 12/25/22 ALPRAZolam [Xanax] 0.25 mg PO Q6HR PRN tab 12/26/22 Acetaminophen [Tylenol] 650 mg PO Q4HR PRN tab 12/26/22 Atorvastatin [Lipitor] 40 mg PO QPM tab 12/26/22 Azithromycin 250 mg PO DAILY 3 Days #3 tablet 12/26/22 Budesonide [Pulmicort] 0.5 mg INH RTBID #1 ml 12/26/22 Cefpodoxime Proxetil [Vantin] 200 mg PO Q12H 3 Days #12 tablet 12/26/22 Ipratropium/Albuterol [Duoneb] 3 ml INH RTQID #12 ml 12/26/22 Metoprolol Succinate [Toprol Xl] 25 mg PO BID tab 12/26/22 Mometasone Furoate [Asmanex] 110 mcg IH BID #1 each 12/26/22 predniSONE [Deltasone] 2 tablet PO 0800 3 Days #6 tablet 12/26/22 - PHYSICAL EXAM AT DISCHARGE General Appearance: positive: No acute distress, Other (Obese) Eyes Bilateral: positive: Normal inspection ENT: positive: ENT inspection nml Neck: positive: Nml inspection Cardiovascular: positive: Regular rate & rhythm, No murmur, No gallop Abdomen: positive: Non-tender, No organomegaly, Nml bowel sounds Extremities: positive: No pedal edema - LABS Result Diagrams: 12/25/22 04:27 12/26/22 04:20 - FOLLOW UP Follow Up: Follow up with PCP Consider starting DM meds due to A1C 7.3 - TIME SPENT Time Spent in Discharge (Minutes): 45
== END 2022-12-26 17:42 | disposition home or self-care (01) | DRG 189 ==
LOC: ED 21:05 → ICU 12-24 00:06
PROVIDERS: ADMIT Internal Medicine; ATTEND Family Medicine Sports Medicine
DX: J96.21 Acute and chronic respiratory failure with hypoxia (principal); J44.1 Chronic obstructive pulmonary disease with (acute) exacerbation; Z68.41 Body mass index [BMI] 40.0-44.9, adult; I42.9 Cardiomyopathy, unspecified; E66.2 Morbid (severe) obesity with alveolar hypoventilation; J96.22 Acute and chronic respiratory failure with hypercapnia; I11.0 Hypertensive heart disease with heart failure; I50.9 Heart failure, unspecified; E78.5 Hyperlipidemia, unspecified; R79.89 Other specified abnormal findings of blood chemistry; Z87.891 Personal history of nicotine dependence
CPT/HCPCS: 36415; 36600; 71045; 80048; 80053; 82330; 82803; 83036; 83735; 83880; 84100; 84484; 85025; 87070; 87150; 87205; 87633; 93005; 93306; 94640; 94660; 94761; 96365; 96368; 96375; 99284; 99285; A9270; J1650; J1815; J2060; J7626

== ENCOUNTER 2023-01-14 11:48 | Outpatient (CLI) | payer BC ==
[2023-01-14] MEDS ORDERED: ALBUTEROL 1 PUFF INH STA (13:31)
== END 2023-01-14 11:49 | disposition home or self-care (01) ==
LOC: RT 11:48
PROVIDERS: ATTEND Physician Assistant
DX: J44.9 Chronic obstructive pulmonary disease, unspecified (principal)
CPT/HCPCS: 94060; 94727; 94729

== ENCOUNTER 2023-05-10 23:58 | Outpatient (CLI) | payer BC | END 2023-05-10 23:59 | disposition short-term general hospital (02) | LOC: EMS 23:58 | DX: R10.0 Acute abdomen (principal); R14.0 Abdominal distension (gaseous); R23.1 Pallor; R61 Generalized hyperhidrosis; R23.8 Other skin changes; R06.82 Tachypnea, not elsewhere classified; I95.9 Hypotension, unspecified | CPT/HCPCS: A0425; A0427 ==

== ENCOUNTER 2023-10-06 15:27 | Emergency (ER) | payer BC ==
--- NOTE | 2023-10-06 15:34 | ED Physician Documentation ---
PD HPI DYSPNEA - Stated complaint Stated Complaint: SOA - History obtained from History obtained from: Patient, Family - Additional information Additional information: 63-year-old gentleman with history of COPD, wears 5 to 6 L of oxygen at home. Quit smoking about 9 years ago. He says he got sick yesterday, his thinks it was 2 days ago with increased shortness of breath. No cough or chest pain. No pedal edema. Has been taking nebulizers at home without relief. PD PAST MEDICAL HISTORY - Past Medical History Cardiovascular: Congestive heart failure, Hypertension Respiratory: COPD Neuro: None Endocrine/Autoimmune: Type 2 diabetes GI: None : None HEENT: None Psych: None Musculoskeletal: None Derm: None - Present Medications Home Medications: Ambulatory Orders Medication Instructions Recorded Confirmed Furosemide [Lasix] 20 mg PO DAILY 30 Days #30 tablet 08/01/22 12/24/22 Spironolactone [Aldactone] 25 mg PO DAILY 30 Days #30 tab 08/01/22 12/24/22 lisinopriL [Zestril] 20 mg PO DAILY #30 tab 08/01/22 12/24/22 Albuterol Sulfate [Proventil Hfa] 2 puffs PO Q4H PRN 12/25/22 12/25/22 Metoprolol Succinate [Toprol Xl] 1 tab PO DAILY 12/25/22 12/25/22 ALPRAZolam [Xanax] 0.25 mg PO Q6HR PRN tab 12/26/22 Acetaminophen [Tylenol] 650 mg PO Q4HR PRN tab 12/26/22 Atorvastatin [Lipitor] 40 mg PO QPM tab 12/26/22 Azithromycin 250 mg PO DAILY 3 Days #3 tablet 12/26/22 Budesonide [Pulmicort] 0.5 mg INH RTBID #1 ml 12/26/22 Cefpodoxime Proxetil [Vantin] 200 mg PO Q12H 3 Days #12 tablet 12/26/22 Ipratropium/Albuterol [Duoneb] 3 ml INH RTQID #12 ml 12/26/22 Metoprolol Succinate [Toprol Xl] 25 mg PO BID tab 12/26/22 Mometasone Furoate [Asmanex] 110 mcg IH BID #1 each 12/26/22 predniSONE [Deltasone] 2 tablet PO 0800 3 Days #6 tablet 12/26/22 Doxycycline [Vibramycin] 100 mg PO BID #10 tablet 10/06/23 predniSONE [Deltasone] 20 mg PO [id number] #21 tab 10/06/23 - Allergies Allergies/Adverse Reactions: Allergies Allergy/AdvReac Type Severity Reaction Status Date / Time codeine Allergy Unknown Verified 10/06/23 15:43 - Social History Does the pt smoke?: No Smoking Status: Former smoker - Immunizations Immunizations are current?: Yes PD ED PE NORMAL - Vitals Vital signs reviewed: Yes - General General: Alert and oriented X 3, Other (On initial evaluation he is in respiratory distress, speaking in very short sentences with oxygen saturations around 70.) - Neck Neck: Supple, no meningeal sign, No bony TTP - Cardiac Cardiac: RRR, No murmur - Respiratory Respiratory: Other (Very diminished breath sounds throughout with tachypnea and respiratory distress.) - Extremities Extremities: No edema, No calf tenderness / cord - Neuro Neuro: Alert and oriented X 3 Results - Vitals Vitals: Vital Signs - 24 hr 10/06/23 10/06/23 10/06/23 15:38 15:45 16:00 Temperature 36.8 C Heart Rate 102 H 89 102 H Respiratory 29 H 18 26 H Rate Blood Pressure 148/93 H O2 Saturation 64 L 98 If not protocol 15 13 : Oxygen Flow, liters/minute 10/06/23 10/06/23 16:30 17:34 Temperature Heart Rate 108 H 10 L Respiratory 24 24 Rate Blood Pressure 146/74 H 146/78 H O2 Saturation 95 92 If not protocol 5 5 : Oxygen Flow, liters/minute Oxygen O2 Source Oxymask Oxygen Flow Rate 5 - EKG (time done) 1537 EKG releavant findings:: EKG personally interpreted by author of this note. Relevant findings are: Rate: Rate (enter#) (95) Rhythm: NSR [place]: Normal Intervals: Normal MI QRS: Normal Ischemia: Q waves (Inferior Q waves), Non specific changes. No: ST elevation c/w ischemia, ST depression Computer interpretation: Agree with computer - Labs Labs: Laboratory Tests 10/06/23 10/06/23 10/06/23 15:30 15:35 15:35 WBC 9.3 RBC 5.88 Hgb 16.9 Hct 55.7 H MCV 94.7 H MCH 28.7 MCHC 30.3 L RDW 12.5 Plt Count 353 MPV 8.6 Neut # (Auto) 6.0 Lymph # (Auto) 2.4 [place] # (Auto) 0.5 Eos # (Auto) 0.3 Baso # (Auto) 0.0 Absolute Nucleated RBC 0.00 Nucleated RBC % 0.0 VBG pH 7.341 VBG pCO2 62.1 H VBG pO2 42.7 VBG HCO3 32.8 H VBG Total CO2 34.7 H VBG O2 Saturation 79.8 VBG Base Excess 4.5 H Sodium 136 Potassium 4.6 H Chloride 95 L Carbon Dioxide 38 H Anion Gap 3.0 L BUN 16 Creatinine 0.9 Estimated GFR (MDRD) 85 L Glucose 169 H Lactic Acid Calcium 9.8 Phosphorus 3.3 Magnesium 1.6 L Total Bilirubin 0.6 AST 13 ALT 15 Alkaline Phosphatase 127 H Total Protein 7.9 Albumin 4.3 Globulin 3.6 Albumin/Globulin Ratio 1.2 Nasal Adenovirus (PCR) Nasal B. parapertussis DNA (PCR) Nasal Coronavir 229E PCR Nasal Coronavir HKU1 PCR Nasal Coronavir NL63 PCR Nasal Coronavir OC43 PCR Nasal Enterovir/Rhinovir PCR Nasal Influenza B PCR Nasal Influenza A PCR Nasal Parainfluen 1 PCR Nasal Parainfluen 2 PCR Nasal Parainfluen 3 PCR Nasal Parainfluen 4 PCR Nasal RSV (PCR) Nasal B.pertussis DNA PCR Nasal C.pneumoniae (PCR) [facility] Metapneumo PCR Nasal M.pneumoniae (PCR) Nasal SARS-CoV-2 (PCR) 10/06/23 10/06/23 15:40 15:45 WBC RBC Hgb Hct MCV MCH MCHC RDW Plt Count MPV Neut # (Auto) Lymph # (Auto) [place] # (Auto) Eos # (Auto) Baso # (Auto) Absolute Nucleated RBC Nucleated RBC % VBG pH VBG pCO2 VBG pO2 VBG HCO3 VBG Total CO2 VBG O2 Saturation VBG Base Excess Sodium Potassium Chloride Carbon Dioxide Anion Gap BUN Creatinine Estimated GFR (MDRD) Glucose Lactic Acid 1.0 Calcium Phosphorus Magnesium Total Bilirubin AST ALT Alkaline Phosphatase Total Protein Albumin Globulin Albumin/Globulin Ratio Nasal Adenovirus (PCR) NOT DETECTED Nasal B. parapertussis DNA (PCR) NOT DETECTED Nasal Coronavir 229E PCR NOT DETECTED Nasal Coronavir HKU1 PCR NOT DETECTED Nasal Coronavir NL63 PCR NOT DETECTED Nasal Coronavir OC43 PCR NOT DETECTED Nasal Enterovir/Rhinovir PCR NOT DETECTED Nasal Influenza B PCR NOT DETECTED Nasal Influenza A PCR NOT DETECTED Nasal Parainfluen 1 PCR NOT DETECTED Nasal Parainfluen 2 PCR NOT DETECTED Nasal Parainfluen 3 PCR NOT DETECTED Nasal Parainfluen 4 PCR NOT DETECTED Nasal RSV (PCR) NOT DETECTED Nasal B.pertussis DNA PCR NOT DETECTED Nasal C.pneumoniae (PCR) NOT DETECTED [facility] Metapneumo PCR NOT DETECTED Nasal M.pneumoniae (PCR) NOT DETECTED Nasal SARS-CoV-2 (PCR) NOT DETECTED - Rads (name of study) Single view chest x-ray is unremarkable except for low lung volumes. Relevant Findings:: Final report received, EMP independent interpretation of test PD Medical Decision Making - ED course ED course: 63-year-old gentleman with history of COPD on fairly high volume home oxygen presents with respiratory distress. He appears ill and sats were in the 60s albeit he was roomed briefly not on oxygen. He was tachypneic and tachycardic. He was attended to immediately after arrival and initial treatment begun with 4 unit doses of albuterol (10 mg total) along with a DuoNeb, 0.3 mg of intramuscular epinephrine, 2 g of magnesium sulfate IV, and 125 mg of Solu- Medrol. He also received antibiotics of ceftriaxone 1 g and azithromycin 500 mg. Initial workup demonstrated a clear chest x-ray. Unremarkable EKG save thrombocytosis likely related to chronic hypoxemia. He has a venous blood gas showing CO2 retention which is likely chronic given the lack of acidosis. CMP showing elevated bicarb, also likely due to chronic CO2 retention with renal compensation. After the above interventions he had an almost miraculous recovery. Much better air motion and improvement in his respiratory distress. We were able to taper him back down to his usual oxygen dose (5 L/min). He wanted to go home, given how sick he was when he got here he was willing to be observed for a bit and we did observe him for a few hours without any clinical worsening. Departure - Departure Disposition: 01 Home, Self Care Clinical Impression: COPD exacerbation Condition: Stable Record reviewed to determine appropriate education?: Yes Instructions: COPD Dc Prescriptions: predniSONE [Deltasone] 20 mg PO [id number] #21 tab Doxycycline [Vibramycin] 100 mg PO BID #10 tablet Comments: I sent your prescriptions electronically to [facility] in [place]. You were quite ill when you got here so I would have a very low threshold to return for reevaluation if you were to worsen. Follow-up with your primary care physician in the next few days for recheck.
[2023-10-06] MEDS ORDERED: IPRATROPIUM/ALBUTEROL 3 ML NEB INH ONE (15:35)
[2023-10-06] MEDS ORDERED: ALBUTEROL NEB 2.5 MG/3 ML INH ONE (15:35)
[2023-10-06] MEDS ORDERED: EPINEPHrine 1 MG/ML AMP ONE (15:35)
[2023-10-06] MEDS: EPINEPHrine 1 MG/ML AMP IM STA (15:37)
[2023-10-06] MEDS: ALBUTEROL NEB 2.5 MG/3 ML INH STA (15:37)
[2023-10-06] MEDS: IPRATROPIUM/ALBUTEROL 3 ML NEB INH STA (15:38)
[2023-10-06] MEDS: MAGNESIUM SULFATE 2 GRAM 2 GM/50 ML BAG IV ONE (15:49)
[2023-10-06] MEDS: methylPREDNISolone SUCCINATE 125 MG/2 ML VIAL IVP STA (15:49)
[2023-10-06 15:50] LABS: BASOPHILS % (AUTO) 0.3 %; EOSINOPHILS # (AUTO) 0.3 10^3/uL (0.0-0.7); EOSINOPHILS % (AUTO) 3.6 %; HCT - HEMATOCRIT 55.7 % (42.0-52.0); HGB - HEMOGLOBIN 16.9 g/dL (14.0-18.0); LYMPHOCYTES # (AUTO) 2.4 10^3/uL (1.5-3.5); LYMPHOCYTES % (AUTO) 26.3 %; MEAN CORPUSCULAR HEMOGLOBIN 28.7 pg (27.0-31.0); MEAN CORPUSCULAR HGB CONC 30.3 g/dL (32.0-36.0); MEAN CORPUSCULAR VOLUME 94.7 fL (80.0-94.0); MEAN PLATELET VOLUME 8.6 fL (7.4-11.4); MONOCYTES # (AUTO) 0.5 10^3/uL (0.0-1.0); MONOCYTES % (AUTO) 5.3 %; NEUTROPHILS % (AUTO) 64.3 %; PLT - PLATELET COUNT 353 10^3/uL (130-450); RED BLOOD COUNT 5.88 10^6/uL (4.70-6.10); RED CELL DISTRIBUTION WIDTH 12.5 % (12.0-15.0); WHITE BLOOD COUNT 9.3 x10^3/uL (4.8-10.8)
[2023-10-06 15:52] LABS: VBG BASE EXCESS 4.5 mmol/L (-2 - +2); VBG HCO3 32.8 mmol/L (23-28); VBG OXYGEN SATURATION 79.8 % (60-80); VBG PCO2 62.1 mmHg (41-51); VBG PH 7.341 (7.31-7.41); VBG PO2 42.7 mmHg (25-47); VBG TOTAL CO2 34.7 mmol/L (24-29)
[2023-10-06] MEDS: AZITHROMYCIN INJ 500 MG in SODIUM CHLORIDE 0.9% 250 ML IV STA (16:04)
[2023-10-06] MEDS: cefTRIAXone 1 GM VIAL IVP STA (16:04)
--- NOTE | 2023-10-06 16:05 | XRAY Report ---
PROCEDURE: Chest 1V INDICATIONS: dyspnea TECHNIQUE: One view of the chest was acquired. COMPARISON: 12/23/2022 FINDINGS: Surgical changes and devices: None. Lungs and pleura: An incomplete inspiratory result is noted, with low lung volumes and crowding of t he vascular markings. No focal infiltrates are seen. No large pneumothorax or large pleural effusion can be seen. Mediastinum: Mediastinal contours appear normal. Heart size is normal. Bones and chest wall: No suspicious bony lesions. Overlying soft tissues appear unremarkable. IMPRESSION: Limited portable chest examination, without an acute abnormality identified. Reviewed by: Jamie Rodriguez MD on 10/06/2023 3:04 PM [facility] Approved by: Jamie Rodriguez MD on 10/06/2023 3:04 PM [facility] Station ID: [id number]
[2023-10-06 16:19] LABS: ALBUMIN 4.3 g/dL (3.2-5.5); ALBUMIN/GLOBULIN RATIO 1.2 (1.0-2.2); BILIRUBIN,TOTAL 0.6 mg/dL (0.2-1.0); CALCIUM 9.8 mg/dL (8.5-10.3); CREATININE 0.9 mg/dL (0.6-1.3); TOTAL PROTEIN 7.9 g/dL (6.4-8.9)
[2023-10-06 16:31] LABS: MAGNESIUM 1.6 mg/dL (1.7-2.3); PHOSPHORUS 3.3 mg/dL (2.5-5.0); POTASSIUM 4.6 mmol/L (3.5-4.5)
[2023-10-06 16:52] LABS: B. PARAPERTUSSIS- RESP PCR PAN NOT DETECTED; B. PERTUSSIS- RESP PCR PANEL NOT DETECTED; C. PNEUMONIAE- RESP PCR PANEL NOT DETECTED; CORONAVIRUS 229E-RESP PCR NOT DETECTED; CORONAVIRUS HKU1-RESP PCR NOT DETECTED; CORONAVIRUS NL63-RESP PCR NOT DETECTED; CORONAVIRUS OC43-RESP PCR NOT DETECTED; HUMAN METAPNEUMOVIRUS NOT DETECTED; INFLUENZA A- RESP PCR PANEL NOT DETECTED; INFLUENZA B - RESP PCR PANEL NOT DETECTED; M. PNEUMONIAE- RESP PCR PANEL NOT DETECTED; PARAINFLUENZA VIRUS 1 NOT DETECTED; PARAINFLUENZA VIRUS 2 NOT DETECTED; PARAINFLUENZA VIRUS 3 NOT DETECTED; PARAINFLUENZA VIRUS 4 NOT DETECTED; RHINOVIRUS/ENTEROVIRUS NOT DETECTED; RSV- RESP PCR PANEL NOT DETECTED; SARS-CoV-2 -RESP PCR PANEL NOT DETECTED
[2023-10-06 17:43] VITALS: BP 146/78; O2SAT 92
== END 2023-10-06 17:58 | disposition home or self-care (01) ==
LOC: ED 15:27
DX: J44.1 Chronic obstructive pulmonary disease with (acute) exacerbation (principal); I11.0 Hypertensive heart disease with heart failure; I50.9 Heart failure, unspecified; E11.9 Type 2 diabetes mellitus without complications; Z99.81 Dependence on supplemental oxygen; Z79.899 Other long term (current) drug therapy
CPT/HCPCS: 36415; 80053; 82803; 83605; 83735; 84100; 85025; 87040; 87633; 93005; 94640; 96365; 96366; 96368; 96375; 99284

== ENCOUNTER 2024-01-14 11:51 | Outpatient (CLI) | payer MEDICARE, BC ==
[2024-01-14 12:13] LABS: BASOPHILS # (AUTO) 0.1 10^3/uL (0.0-0.1); BASOPHILS % (AUTO) 0.4 %; EOSINOPHILS # (AUTO) 0.1 10^3/uL (0.0-0.7); EOSINOPHILS % (AUTO) 1.1 %; HGB - HEMOGLOBIN 15.4 g/dL (14.0-18.0); LYMPHOCYTES # (AUTO) 3.6 10^3/uL (1.5-3.5); LYMPHOCYTES % (AUTO) 29.6 %; MEAN CORPUSCULAR HEMOGLOBIN 28.8 pg (27.0-31.0); MEAN CORPUSCULAR HGB CONC 31.4 g/dL (32.0-36.0); MEAN CORPUSCULAR VOLUME 91.6 fL (80.0-94.0); MEAN PLATELET VOLUME 8.3 fL (7.4-11.4); MONOCYTES # (AUTO) 0.8 10^3/uL (0.0-1.0); MONOCYTES % (AUTO) 6.3 %; NEUTROPHILS # (AUTO) 7.6 10^3/uL (1.5-6.6); NEUTROPHILS % (AUTO) 62.4 %; PLT - PLATELET COUNT 353 10^3/uL (130-450); RED BLOOD COUNT 5.35 10^6/uL (4.70-6.10); RED CELL DISTRIBUTION WIDTH 13.2 % (12.0-15.0); WHITE BLOOD COUNT 12.2 x10^3/uL (4.8-10.8)
[2024-01-14 12:38] LABS: ALBUMIN 4.4 g/dL (3.2-5.5); ALBUMIN/GLOBULIN RATIO 1.4 (1.0-2.2); ALKALINE PHOSPHATASE 102 IU/L (42-121); ALT ALANINE AMINOTRANSFERASE 14 IU/L (10-60); AST ASPARTATE AMINOTRANSFERASE 17 IU/L (10-42); BILIRUBIN,TOTAL 0.6 mg/dL (0.2-1.0); BUN - BLOOD UREA NITROGEN 22 mg/dL (6-20); CALCIUM 9.3 mg/dL (8.5-10.3); CARBON DIOXIDE - CO2 34 mmol/L (21-32); CHLORIDE 95 mmol/L (101-111); CHOLESTEROL 251 mg/dL; CREATININE 1.3 mg/dL (0.6-1.3); GFR - MDRD 55 (>89); GLUCOSE 157 mg/dL (74-104); HDL CHOLESTEROL 50 mg/dL; LDL CHOLESTEROL,CALCULATED 158 mg/dL; LDL/HDL RATIO 3.2 (<3.6); POTASSIUM 4.9 mmol/L (3.5-4.5); SODIUM 136 mmol/L (135-145); TOTAL PROTEIN 7.6 g/dL (6.4-8.9); TRIGLYCERIDES 213 mg/dL; VLDL CHOLESTEROL 43 mg/dL
[2024-01-14 12:43] LABS: THYROID STIMULATING HORMONE 7.52 uIU/mL (0.34-5.60)
[2024-01-14 12:57] LABS: ESTIMATED AVERAGE GLUCOSE 151 mg/dL (70-100); HEMOGLOBIN A1c% 6.9 % (4.27-6.07)
== END 2024-01-14 11:52 | disposition home or self-care (01) ==
LOC: LAB 11:51
PROVIDERS: ATTEND Physician Assistant
DX: E11.65 Type 2 diabetes mellitus with hyperglycemia (principal); Z12.5 Encounter for screening for malignant neoplasm of prostate
CPT/HCPCS: 36415; 80053; 80061; 83036; 84439; 84443; 85025; G0103; 83721; 84153

== ENCOUNTER 2024-02-04 19:14 | Outpatient (CLI) | payer MEDICARE, BC ==
--- NOTE | 2024-02-05 08:42 | XRAY Report ---
PROCEDURE: Chest 2V INDICATIONS: COPD,ACUTE EXACERBATION TECHNIQUE: 2 views of the chest were acquired. COMPARISON: 10/06/2023 FINDINGS: Surgical changes and devices: None. Lungs and pleura: No dense consolidation or pleural effusion. Low lung volumes. Mediastinum: Normal heart size Bones and chest wall: Degenerative changes IMPRESSION: Low lung volumes. No acute radiographic abnormality. Reviewed by: Darien Macias MD on 02/05/2024 8:41 AM PDT Approved by: Darien Macias MD on 02/05/2024 8:41 AM PDT Station ID: [id number]
== END 2024-02-04 19:15 | disposition home or self-care (01) ==
LOC: DI 19:14
PROVIDERS: ATTEND Physician Assistant
DX: J44.1 Chronic obstructive pulmonary disease with (acute) exacerbation (principal)

== ENCOUNTER 2024-02-18 08:46 | Outpatient (CLI) | payer BC ==
--- NOTE | 2024-02-18 12:53 | CT Report ---
PROCEDURE: Lung Cancer Screen INDICATIONS: HIST OF SMOKING TECHNIQUE: A CT scan of the chest was performed. Intravenous contrast media was not administered. Images were re corded and evaluated at appropriate window settings. Reformats: axial MIP of the chest, coronal and s agittal. For radiation dose reduction, the following was used: automated exposure control, adjustment of mA and/or kV according to patient size. COMPARISON: 11/27/2022 FINDINGS: Image quality: Diagnostic. Lungs and pleura: No pleural effusions. No pneumothorax. No suspicious pulmonary nodules which requi re follow up. Mediastinum: Heart size is normal. No pericardial effusion. No large vessel abnormality. No mediastin al adenopathy by size criteria. Three vessel coronary artery calcifications. Chest wall and lower neck: Thyroid is unremarkable. No axillary or supraclavicular adenopathy by size . Bones: No aggressive osseous abnormality. No acute compression fractures. Multilevel spondylosis. Upper Abdomen: Unremarkable. IMPRESSION: Lung RAD: 1 - Negative. Recommendation: Continue annual screening in 12 Months with LDCT Non-Lung Significant Findings: Coronary Arterial Calcification - Moderate or Severe. Reviewed by: Ivan Field MD on 02/18/2024 11:52 AM [facility] Approved by: Ivan Field MD on 02/18/2024 11:52 AM [facility] Station ID: [id number]
== END 2024-02-18 08:47 | disposition home or self-care (01) ==
LOC: DI 08:46
PROVIDERS: ATTEND Physician Assistant
DX: Z12.2 Encounter for screening for malignant neoplasm of respiratory organs (principal); I25.10 Atherosclerotic heart disease of native coronary artery without angina pectoris; Z87.891 Personal history of nicotine dependence